=== PATIENT | male | born 1965 | race African-American/Black ===

== ENCOUNTER 2018-05-08 15:58 | Inpatient (IN) ==
[2018-05-08] MEDS ORDERED: ATARAX PO PRN (18:24)
[2018-05-08] MEDS ORDERED: CALAMINE LOTION TOP PRN (18:24)
[2018-05-08] MEDS ORDERED: MOBIC PO PRN (18:24)
[2018-05-08] MEDS ORDERED: NORCO-10 PO PRN (18:40)
--- NOTE | 2018-05-08 18:45 | HISTORY AND PHYSICAL ---
HISTORY OF PRESENT ILLNESS: Mr. Shawn Martinez is a 53-year-old black male who presented to my outpatient office today with ischemic left lower extremity. He states that he has had significant pain involving this left lower extremity for the last 2 weeks. He is developing gangrene of his left great toe. He does have diabetes and is a smoker. He has undergone vascular surgery in [address] Lemon including bilateral iliac angioplasty with a right iliac stent placement. He has also had a left common femoral endarterectomy. He has had a transmetatarsal amputation right foot. He now has an ischemic left lower extremity. MEDICATIONS: Include 1. Aspirin. 2. Farxiga. 3. Pepcid. 4. Atarax. 5. Glucophage. 6. Mobic. ALLERGIES: He has a latex allergy. SOCIAL HISTORY: Family brought him to my offices. He drinks socially on the weekends. He is disabled and lives with his mother. FAMILY HISTORY: Mother has cancer of unknown origin. Dad has prostate cancer. He does have diabetes in his family. REVIEW OF SYSTEMS: A 14-point review of systems was performed and was essentially the same except for pain involving his left lower extremity for the last 2 weeks. PHYSICAL EXAMINATION: GENERAL: Mr. Martinez is a black male, middle aged, in a wheelchair in my office with an ischemic left leg. He is awake cooperative. He has no jaundice. HEENT: No oral lesions. NECK: No cervical or supraclavicular lymphadenopathy. HEART: Regular rate. LUNGS: Clear. ABDOMEN: Soft without tenderness. No costovertebral tenderness. RECTAL: Examination was not performed. EXTREMITIES: I did not feel his femoral pulses but he has an ischemic left leg. Left foot is becoming gangrenous. He cannot move his toes. He cannot move his ankle. He states that he has some redness when he urinates. IMPRESSION: Ischemic left leg with tissue dying with urine that may have myoglobinuria. PLAN: We will admit him, get laboratory data, and he will need an amputation of his left lower extremity. I discussed this frankly with the patient and his family in our outpatient offices. He wants to be admitted. Will evaluate him further with noninvasive vascular study. He will probably need [id number] amputation. We will get the hospitalist to help us with his medical care. cc: MD Bertrand Mora MD
[2018-05-08 19:20] LABS: BASO# 0.02 X1000 (0.0-0.2); BASO% 0.1 % (0.0-0.8); HEMATOCRIT 37.8 % (42.0-52.0); HEMOGLOBIN 12.6 g/dL (14.0-18.0); IMM GRAN# 0.08 X1000 (0.0-0.04); IMM GRAN% 0.4 % (0.0-0.5); LYMPH% 8.7 % (20.5-51.1); MCH 28.1 PG (27-31); MCHC 33.3 g/dL (33-37); MCV 84.2 FL (81-99); MONO# 0.77 X1000 (0.11-0.59); MONO% 4.2 % (1.7-9.3); MPV 10.9 FL (7.4-10.4); NEUT# 16.02 X1000 (1.4-6.5); NEUT% 86.6 % (42.2-75.2); PLT 403 X1000 (130-400); RBC 4.49 XMIL (4.7-6.1); RDW 13.6 % (11.5-14.5); WBC 18.49 X1000 (4.8-10.8)
[2018-05-08] MEDS ORDERED: ZOFRAN IV PRN (19:25)
[2018-05-08] MEDS ORDERED: TYLENOL PO PRN (19:25)
[2018-05-08] MEDS ORDERED: VANCOMYCIN IV PER PHARMACY MISC SCH (19:30)
[2018-05-08] MEDS ORDERED: LOPRESSOR IV PRN (19:43)
[2018-05-08 19:51] LABS: ALB/GLOB RATIO 0.6; ALBUMIN 3.1 g/dL (3.5-5.0); CALCIUM 9.3 mg/dL (8.8-10.2); POTASSIUM 4.5 mmol/L (3.5-5.1); TOTAL BILIRUBIN 0.85 mg/dL (0.20-1.00); TOTAL PROTEIN 8.5 g/dL (6.3-8.3)
[2018-05-08] MEDS ORDERED: VANCOMYCIN 2,200 MG in NS 500 ML IV ONE (20:00)
[2018-05-08] MEDS ORDERED: VANCOMYCIN 1,800 MG in NS 500 ML IV ONE (21:00)
[2018-05-08] MEDS ORDERED: BASAGLAR SUBQ ONE (21:23)
[2018-05-08] MEDS: LOVENOX SUBQ SCH (21:27)
[2018-05-08] MEDS: ZOSYN 3.375 GM in NS 50 ML IV SCH (21:27)
[2018-05-08] MEDS: NS 1,000 ML IV SCH (21:27)
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
[2018-05-08] MEDS: HUMULIN R SUBQ SCH (22:02)
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
--- NOTE | 2018-05-08 22:25 | Diag Imaging Result Doc PS360 ---
EXAM: CT HEAD W/O CONTRAST HISTORY: encephalopathy TECHNIQUE: CT head without contrast COMPARISON: 03/08/2018 FINDINGS: No parenchymal hemorrhage. No epidural or subdural hematoma. No subarachnoid hemorrhage. 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 No mass identified on this noncontrasted exam. No hydrocephalus. No sinus opacification. 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 Electronically signed by Han Smith 05/08/2018 10:22 PM
[2018-05-08] MEDS: MORPHINE IV PRN (23:03)
[2018-05-08 23:07] LABS: URINE SOURCE CATH
[2018-05-08 23:17] LABS: BILIRUBIN URINE NEGATIVE (NEGATIVE); BLOOD URINE MODERATE (NEGATIVE); COLOR YELLOW; GLUCOSE URINE 70 mg/dL (NEGATIVE); KETONE URINE NEGATIVE (NEGATIVE); LEUKOCYTES URINE NEGATIVE (NEGATIVE); NITRITE URINE NEGATIVE (NEGATIVE); PH URINE 5.5; PROTEIN URINE 30 mg/dL (NEGATIVE); SP GRAVITY URINE 1.015; TURBIDITY URINE HAZY (CLEAR); UROBILINOGEN URINE NORMAL (NORMAL)
[2018-05-08 23:20] LABS: UR EPITHELIAL CELLS <10 /HPF (<10); URINE BACTERIA NEGATIVE /HPF; URINE RBC <10 /HPF (<10); URINE WBC <10 /HPF (<10)
[2018-05-08 23:29] LABS: URINE CASTS NONE SEEN; URINE CRYSTALS NONE SEEN; URINE SMALL ROUND CELLS NONE SEEN; URINE YEAST NONE SEEN
[2018-05-09] MEDS: ZOSYN 3.375 GM in NS 50 ML IV SCH ×3 (02:15→13:49)
[2018-05-09] MEDS: MORPHINE IV PRN ×2 (04:05→13:45)
[2018-05-09] MEDS: HUMULIN R SUBQ SCH ×2 (06:32→21:19)
[2018-05-09 06:35] LABS: BASO# 0.03 X1000 (0.0-0.2); BASO% 0.2 % (0.0-0.8); EOS# 0.02 X1000 (0.0-0.7); EOS% 0.1 % (0.0-10.0); HEMATOCRIT 36.7 % (42.0-52.0); HEMOGLOBIN 12.2 g/dL (14.0-18.0); IMM GRAN# 0.07 X1000 (0.0-0.04); IMM GRAN% 0.4 % (0.0-0.5); LYMPH# 2.13 X1000 (1.2-3.4); LYMPH% 12.5 % (20.5-51.1); MCHC 33.2 g/dL (33-37); MCV 84.4 FL (81-99); MONO# 1.01 X1000 (0.11-0.59); MONO% 5.9 % (1.7-9.3); MPV 10.7 FL (7.4-10.4); NEUT# 13.72 X1000 (1.4-6.5); NEUT% 80.9 % (42.2-75.2); PLT 406 X1000 (130-400); RBC 4.35 XMIL (4.7-6.1); RDW 13.5 % (11.5-14.5); WBC 16.98 X1000 (4.8-10.8)
[2018-05-09 06:43] LABS: INR 1.12; PROTIME 15.3 Seconds (11.0-16.0)
[2018-05-09 06:44] LABS: PTT 40.1 Seconds (22.3-41.8)
[2018-05-09 06:55] LABS: BANDS 4 % (0-1); LYMPHS 12 % (21-51); MONO 2 % (1-9); SEGS 82 % (42-75)
[2018-05-09 07:04] LABS: ALB/GLOB RATIO 0.6; ALBUMIN 3.2 g/dL (3.5-5.0); CALCIUM 9.9 mg/dL (8.8-10.2); CREATININE 2.2 mg/dL (0.7-1.2); MAGNESIUM 3.2 mg/dL (1.5-2.7); POTASSIUM 4.6 mmol/L (3.5-5.1); TOTAL BILIRUBIN 0.76 mg/dL (0.20-1.00); TOTAL PROTEIN 8.5 g/dL (6.3-8.3)
[2018-05-09] MEDS ORDERED: GLUCOPHAGE PO SCH (09:00)
[2018-05-09] MEDS ORDERED: NON-FORMULARY MED (Dapagliflozin Propanediol [Farxiga] 5 MG) PO SCH (09:00)
--- NOTE | 2018-05-09 09:27 | Diag Imaging Result Doc PS360 ---
EXAM: CHEST-PORTABLE HISTORY: ischemic left leg TECHNIQUE: Portable chest single view COMPARISON: 10/05/2016 FINDINGS: The lungs are well expanded. The heart is not enlarged. The vessels are not distended. There are no infiltrates. No effusion identified. IMPRESSION: Negative exam. Electronically signed by Han Smith 05/09/2018 9:25 AM
[2018-05-09] MEDS ORDERED: HUMULIN R SUBQ SCH (09:30)
[2018-05-09] MEDS ORDERED: VANCOMYCIN 1,800 MG in NS 500 ML IV SCH (10:00)
[2018-05-09] MEDS: PEPCID PO SCH (10:58)
--- NOTE | 2018-05-09 12:16 | Diag Imaging Result Doc PS360 ---
EXAM: US RENAL 2 (RETROPER) COMPLETE HISTORY: yen TECHNIQUE: Renal ultrasound COMPARISON: None. FINDINGS: The right kidney measures 11.3 x 5.8 x 5.7 cm. Normal renal echotexture and cortical thickness. No renal stone or hydronephrosis. No renal mass. The left kidney measures 12.9 x 5.5 x 5.0 cm. Normal renal echotexture and cortical thickness. No renal stones or hydronephrosis. No renal mass. IMPRESSION: Normal renal ultrasound. Electronically signed by Han Smith 05/09/2018 12:13 PM
--- NOTE | 2018-05-09 13:00 | Diag Imaging Result Doc PS360 ---
EXAM: CT ANGIOGRAM AORTA W/RUNOFF INDICATION: ischemic L leg. TECHNIQUE: This exam was performed using automated exposure control, adjustment of mA or kV according to patient size, and/or use of iterative reconstruction technique. Thin section axial images and 3-D MIPS were obtained. Note that due to significantly impaired renal function, the contrast dose was reduced to 70 mL from the normal 120 mL. This results in poor opacification of the smaller lower extremity arteries. COMPARISON: None. FINDINGS: There is extensive atherosclerotic disease involving the distal aorta and iliac arteries with calcification as well as soft plaques. This is worsened during the interval. The distal aorta is markedly narrowed, up to 80-90% focally. However, it does remain patent. However, the left common iliac artery and left external iliac artery are completely occluded. There has been interval placement of a right common iliac artery stent. There is very little flow within the stent but it probably remains patent. The external iliac artery on the right is patent throughout. There is no evidence of acute intra-abdominal or intrapelvic pathology. Right: There is severe atherosclerotic disease involving the common femoral artery with intermittent occlusion and reconstitution. The superficial femoral artery is completely occluded throughout its course. There is reconstitution via collateralization at the popliteal artery. There is patchy atherosclerotic disease involving the popliteal artery with intermittent narrowing. However, it remains patent. The anterior tibial artery is difficult to visualized due to the poor contrast bolus but it is at least patent until the distal calf. The tibioperoneal trunk also appears to be occluded. The posterior tibial artery and peroneal artery are difficult to visualize given the poor contrast bolus. Left: The common femoral artery is reconstituted after the complete occlusion of the external iliac artery. However, there is extensive atherosclerotic disease involving the common femoral artery, which exhibits irregular moderate stenosis. The superficial femoral artery is completely occluded. There is reconstitution at the popliteal artery but it is very diminutive. The anterior tibial artery, posterior tibial artery, and peroneal artery are difficult to visualize due to the poor contrast bolus. However, they are probably occluded or at least flow is significantly limited. IMPRESSION: Advanced aortoiliac and lower extremity atherosclerotic disease as detailed above. Electronically signed by Jonathan Spann 05/09/2018 12:58 PM
--- NOTE | 2018-05-09 13:15 | PROGRESS NOTE ---
DATE: 05/09/2018 SUBJECTIVE: Mr. Shawn Martinez is a 53-year-old -[place] male. He is in no acute distress, and he is much alert today than yesterday evening. Still continues to have no sensation from just above the left knee all the way down. He has no other new complaints. OBJECTIVE: Vital signs: Temperature is 97.9, heart rate 96, respiratory rate 16, blood pressure 94/57, O2 saturation 94% on room air. General: Mr. Shawn Martinez is a 53-year-old - Somali male. He is in no acute distress. He is able to answer some questions appropriately. Cardiovascular: S1, S2. Regular rate and rhythm. No rubs, gallops, or murmurs. No lower extremity edema. Unable to palpate lower extremity pulses on the left, although, he does have popliteal and femoral palpable pulses and a palpable pulse of the right posterior tibial and dorsalis pedal. Negative for JVD and carotid bruits. Pulmonary: Clear to auscultate bilateral breath sounds. No accessory muscle use or work of breathing noted and is on room air. GI: Soft, nontender, nondistended. Positive bowel sounds x4. Extremities: Decreased range of motion and strength and decreased sensation of the left lower extremity above the knee down. Neurologic: Oriented x3. Follows commands. Skin: Warm, dry, intact except for between the great toe and second toe on the left foot. The great toe is ischemic and gangrenous with a foul smell. LABORATORY DATA: White blood cells 16,000, hemoglobin 12, hematocrit 36, platelet count 406. INR 1.12. PTT is 40.1. Sodium 141, potassium 4.6, BUN 132, creatinine is 2.2, glucose 184. Hemoglobin A1c is 8. Magnesium 3.2. Bilirubin 0.76. AST 84, ALT 124, alkaline phosphatase is 213. CK is 3597. Troponin less than 0.01. Albumin 3.2. Lactate was 1.7. TSH 1.80. Free T4 is 1.21. IMAGING: Chest x-ray negative exam. Telemetry strip sinus tachycardia. ASSESSMENT AND PLAN: 1. Left great toe gangrenous with poor circulation followed by Dr. Persaud with plan for amputation. There is also an order for CT angiogram of the aorta with runoff today. 2. Leukocytosis with signs of sepsis that was present on admission but lactate was normal. Continued on Zosyn and vancomycin. IV fluids continued. Follow up on blood cultures and urine culture. Likely source is the gangrenous left great toe. Chest x-ray was clear. 3. Uncontrolled diabetes mellitus type 2. Hemoglobin A1c is 8. Continue with pattern blood glucoses, low-dose sliding scale insulin. Metformin was stopped. Insulin Glargine, there was only 1 time dose given of that, 15 units. Also Farxiga was discontinued as well. So far, blood glucose levels have been maintained, looks like 206-285, the actual serum glucose level this morning was 184. Will monitor a little more closely and if needed to we can go from a low- dose sliding scale to a moderate. 4. Hypertension with tachycardia has resolved. There was no need for dosing of metoprolol. 5. Encephalopathy likely metabolic but also history of cerebrovascular accident multiple areas resulted through a CAT scan that was performed last night. No acute injuries. Encephalopathy has improved this morning and he is much alert. Hypercoagulable workup ordered. 6. Acute kidney injury with possible history of chronic kidney, although, it looks like his kidney function was normal in February. He presented with a 3.0 creatinine and with IV fluids it has dropped to 2.2. Will do urine studies and a renal ultrasound as well. This could be in the setting of rhabdomyolysis due to the poor perfusion of the muscle on the left lower extremity. 7. Rhabdomyolysis. CK is 3597. He is receiving IV fluid hydration. Kidney function is starting to improve. Will repeat CK daily to monitor for decrease in the CK. Lactate is normal. 8. Elevated anion gap metabolic acidosis. Currently, bicarbonate is 20 and anion gap is 17 slightly improved. Should improve once kidney function improves. 9. Transaminitis with acute kidney injury likely secondary to sepsis, rhabdomyolysis, dehydration, and he has also had a history of alcoholism but has not drank in a few months now. Could do hepatitis panel as well. Ammonia level has not been resulted yet, it has been ordered. 10.Anemia, likely chronic. 11.Deep venous thrombosis prophylaxis, Lovenox. Dictated by DHEERAJ Cadena for Bertrand Murphy MD cc: DHEERAJ Cadena MD I agree with most components of assessment and plan. I evaluated him at bedside. He continues to remain encephalopathic. Vitals detect his tachycardia is a little better with heart rate in 105/min. Air entry bilaterally equal and regular heart rhythm. His left lower and right lower extremity continues to remain cold below knee and left great toe appears gangrenous. Plan; Continue IV fluids his TIA is improving. COntinue broad spectrum antibiotics until final blood culture result comes back. I will stop his transfer to [facility] order since his CT scan detect chronic encephalomalacia rather than acute changes. CLAUDETTE
--- NOTE | 2018-05-09 13:20 | EKG Report ---
Test Performed on : 05/09/2018 1:03:21 PM Test Reason : new admission; rythm check Blood Pressure : / mmHG Vent. Rate : 096 BPM Atrial Rate : 096 BPM P-R Int : 150 ms QRS Dur : 076 ms QT Int : 318 ms P-R-T Axes : 051 060 039 degrees QTc Int : 401 ms Normal sinus rhythm. Septal infarct , age undetermined Abnormal ECG When compared with ECG of 01-AUG-2013 14:32, Septal infarct is now present QT has shortened Unconfirmed Result
[2018-05-09] MEDS: NS 1,000 ML IV SCH ×2 (13:51→19:45)
[2018-05-09] MEDS ORDERED: NIMBEX ONE (14:17)
[2018-05-09] MEDS ORDERED: NS 2,000 ML ONE (14:33)
[2018-05-09] MEDS ORDERED: KEFZOL ONE (14:33)
[2018-05-09] MEDS ORDERED: HEPARIN ONE ×2 (14:33)
[2018-05-09] MEDS ORDERED: NITROGLYCERIN 50 MG/D5W 0 MG/0 ML IV.SOLN ONE (14:46)
[2018-05-09] MEDS ORDERED: XYLOCAINE-MPF 2% ONE (15:28)
[2018-05-09] MEDS ORDERED: SODIUM CHLORIDE 0.9% 20 ML ONE (15:28)
[2018-05-09] MEDS ORDERED: ROBINUL ONE (15:28)
[2018-05-09] MEDS ORDERED: NEO-SYNEPHRINE ONE ×2 (15:28→17:35)
[2018-05-09] MEDS ORDERED: DIPRIVAN 1% ONE (15:31)
[2018-05-09] MEDS ORDERED: QUELICIN (DOSE) ONE (15:31)
[2018-05-09] MEDS ORDERED: FENTANYL ONE (15:31)
--- NOTE | 2018-05-09 15:34 | PROGRESS NOTE ---
DATE: 05/09/2018 SUBJECTIVE: I admitted Mr. Martinez yesterday from our offices with an ischemic left lower extremity. It was already becoming gangrenous. He has known peripheral vascular disease. He is a diabetic and smoker. I could palpate no femoral pulses on exam. Early this morning he underwent a noninvasive vascular study of his lower extremities and there is essentially no pulse waveforms in either lower extremity. This was followed by CT angiogram which suggested occlusion of the left iliacs with some flow in the right iliacs but it was minimal. OBJECTIVE: On exam, his right lower extremity was viable. His left lower extremity was essentially to his knee and below. ASSESSMENT AND PLAN: Amputation is going to be an [id number] amputation, which I think he will require because of his tissue involving his left lower extremity. I spoke with Dr. Kelly. We feel we ought to try to revascularize the right leg and maybe even do a femoral- femoral arterial bypass to the left groin so that our amputation would have a better chance of healing. I spoke with his mother in detail. They understand that he is in a life-threatening situation. They understand this is major surgery, not only the left [id number] amputation but any vascular surgery. If we cannot do this with balloons and stents, we will have to do an aortobifemoral. We will plan for him to be hospitalized in the ICU afterwards. The patient is somewhat confused today and his mother wanted us to proceed. cc: MD Bertrand Mora MD
[2018-05-09] MEDS ORDERED: HEPARIN (DOSE) ONE (16:47)
[2018-05-09] MEDS ORDERED: ZOFRAN ONE (17:05)
[2018-05-09] MEDS ORDERED: NS 0 ML ONE (17:30)
[2018-05-09] MEDS ORDERED: NEOSTIGMINE ONE (18:19)
[2018-05-09] MEDS ORDERED: NS 1,000 ML ONE (18:49)
[2018-05-09] MEDS ORDERED: OFIRMEV 1000 MG/ISOTONIC SOLN 1,000 MG/100 ML BOTTLE ONE (19:13)
[2018-05-09] MEDS ORDERED: NS 500 ML ONE (19:15)
[2018-05-09] MEDS ORDERED: PHENERGAN IV PRN (19:46)
[2018-05-09] MEDS ORDERED: SODIUM CHLORIDE 0.9% INJ PRN (19:46)
--- NOTE | 2018-05-09 19:59 | OPERATIVE NOTE ---
PROCEDURE DATE: 05/09/2018 PREOPERATIVE DIAGNOSES: 1. Ischemic left leg. 2. Insulin-dependent diabetes mellitus. 3. Smoker. 4. Known peripheral vascular disease. POSTOPERATIVE DIAGNOSES: 1. Ischemic left leg. 2. Insulin-dependent diabetes mellitus. 3. Smoker. 4. Known peripheral vascular disease. OPERATION: Left bklxs-lhv-vael amputation. SURGEON: Esperanza Persaud MD RAIL CAR UNLOADER: Ramakrishna Kelly MD ANESTHESIA: General. ESTIMATED BLOOD LOSS: 150 mL DRAINS: None. INDICATIONS: Mr. Shawn Martinez is a 53-year-old black male who in 2013 underwent vascular surgery per Dr. Lemon. He presented to my office on 05/08/2018 with an ischemic and dying left lower extremity. He could not walk on this leg or move his toes or ankle, and it was clearly mottled and dying. He had gangrene involving his left toe and the back of his ankle. He was admitted immediately to the hospital, received IV hydration and this morning underwent a noninvasive vascular study, and also a CT angiogram. The angiogram suggested that the iliac vessels on the left were occluded. He also had poor flow in the right lower extremity without pulse waveforms. We felt we should take him to the operating room this evening and remove his essentially left lower extremity, and try to improve flow to the right lower extremity and improve flow to the amputation site so that it would heal. Dr. Kelly and I worked together on this operation. PROCEDURE: The patient was brought to the operating room, received general anesthesia and was intubated. Ram catheter tube was in. We prepped his abdomen, groin and down to his knees bilaterally. The patient was prepped and draped carefully. We did use an Ioban on the skin, and we began our procedure by cutting down on the groins bilaterally and identifying the common femoral arteries and their branches. Both of these groins have been operated on before. Dr. Kelly worked on the right groin. I worked on the left groin, and we isolated these vessels with Vesseloops. Before heparinizing the patient and moving on with revascularization, we did the left above-the- knee amputation. I marked a fishmouth incision above the knee on the left and I made my incision with a 10 blade scalpel circumferentially around the left thigh. I carried this incision down through the skin and subcutaneous tissue to the muscle layer, where I changed to the Bovie and started transecting the muscles of the thigh. I used an orthopedic power saw to come across the femur, and then I used an amputation knife to finish the amputation posteriorly. We controlled bleeding as we came across it using Nenita clamps, hemostats and 2-0 ties or suture ligatures. There was not much bleeding involving this area, but the muscle was still alive as we came across it with the cautery. There was some bleeding in small vessels involving this area. The tissue was not where we came across the left dhjzv-rvy-ynkn amputation. Once we were comfortable with the bleeding, we thoroughly irrigated the amputation site and I closed this amputation wound in layers. Initially, I closed the deep muscle and fascia over the cut end of the femur, and I used 0 Vicryl stitches to close the superficial fascia anteriorly to posteriorly. Then I used a skin clip video tape duplicator to close the skin of our wound. We then directed our attention to revascularization and Dr. Kelly took over, performing balloon angioplasty of the right iliac vessels. Then he and I performed a femoral-femoral arterial bypass graft. This was an 8 mm knitted graft. He is dictating those procedures separately. The patient had a lot of surgery. He is critically ill. He will go the recovery room and the ICU. I spoke with his family after the procedure. cc: MD Bertrand Mora MD
--- NOTE | 2018-05-09 20:15 | OPERATIVE NOTE ---
PROCEDURE DATE: 05/09/2018 PREOPERATIVE DIAGNOSES: 1. Arterial ischemia of left leg with gangrene. 2. Left common iliac occlusion. 3. Right iliac stenosis. 4. Probable right superficial femoral disease as well. POSTOPERATIVE DIAGNOSES: 1. Arterial ischemia of left leg with gangrene. 2. Left common iliac occlusion. 3. Right iliac stenosis. 4. Probable right superficial femoral disease as well with in-stent stenosis. MY PORTION OF THE OPERATION: Open right common iliac balloon angioplasty SECOND PORTION OF OPERATION: Femoral-femoral bypass. CARE CENTER MANAGER: Dr. Esperanza Persaud, who assisted me in the anastomoses and exposure for the femoral- femoral bypass and assisted with the left common femoral anastomosis. DESCRIPTION OF PROCEDURE: Satisfactory general endotracheal anesthesia was achieved. Dr. Persaud placed a central venous line. The abdomen and legs were prepped and draped. We made vertical incisions, and I dissected the right common femoral and he dissected the left common femoral out. He then performed a left above-knee amputation, which he will dictate. We then gave the patient 8000 units of heparin. We accessed the right common femoral with Seldinger technique and put in a 6-Romanian sheath. We shot a retrograde arteriogram, and this showed flow all the way into the aorta. There did appear to be some mild in-stent stenosis, so I used a 7 x 4 balloon x2 to dilate the area of the stent to be certain there was no in-stent stenosis that would compromise flow. We did have quite good antegrade bleeding at that point, so we obtained an 8 mm Hemashield graft and tunneled it between the groins. We opened the right after dissecting out the profunda and the branch vessels of the common femoral on the right. We then did an arteriotomy. There was some intima that we had to remove, but we did have backbleeding from the profunda. We were able to pass 3, 4 and 5 dilators into the profunda, and there was good back bleeding. We had adequate antegrade flow as well, and a pulse was palpated in the common femoral and the external iliac just above the inguinal ligament. We then constructed the anastomosis using a 5-0 Prolene stitch between the graft and the common femoral artery. Upon completion, we then allowed flow into the wyandotte artery, and we clamped off the femoral-femoral bypass. We then turned our attention to the left side, and with Dr. Persaud's assistance we did a left common femoral anastomosis there. There was back bleeding from the profunda, and a small amount of antegrade flow as well. Before finishing the anastomosis, we flushed the graft, and there was adequate antegrade flow, and the anastomosis was finished. Both the anastomoses were hemostatic. A pulse was felt within the graft. We irrigated out both groins with antibiotic-impregnated saline and closed in 2 layers of 2-0 Polysorb. The skin was closed with luisito. Sterile dressings were applied. He tolerated procedure satisfactorily. We gave the patient 60 mL of contrast. Estimated blood loss was 700 mL. He was sent to the recovery room in stable condition. cc: MD Bertrand Mcintosh MD
[2018-05-09 20:22] LABS: I-STAT BE -8 mmoll (-2-3); I-STAT GLUCOSE 178 mg/dL (70-105); I-STAT HEMOGLOBIN 8.8 g/dL (11.5-17.5); I-STAT K 4.4 mmoll (3.5-4.9); I-STAT TCO2 19 mmoll (23-27)
[2018-05-09] MEDS: KEFZOL 1 GM/D5W 1 GM/50 ML IVPB IV SCH (21:12)
[2018-05-09] MEDS: LOVENOX SUBQ SCH (21:13)
[2018-05-09 23:22] LABS: UR CREAT RANDOM 30.1 mg/dL (14-26)
[2018-05-10] MEDS: HUMULIN R SUBQ SCH ×4 (02:19→19:34)
[2018-05-10] MEDS: KEFZOL 1 GM/D5W 1 GM/50 ML IVPB IV SCH ×4 (03:45→20:23)
[2018-05-10 04:18] LABS: BASO# 0.04 X1000 (0.0-0.2); BASO% 0.2 % (0.0-0.8); EOS# 0.03 X1000 (0.0-0.7); EOS% 0.2 % (0.0-10.0); HEMATOCRIT 37.4 % (42.0-52.0); HEMOGLOBIN 12.5 g/dL (14.0-18.0); IMM GRAN% 0.6 % (0.0-0.5); LYMPH# 1.54 X1000 (1.2-3.4); LYMPH% 9.3 % (20.5-51.1); MCH 29.3 PG (27-31); MCHC 33.4 g/dL (33-37); MCV 87.6 FL (81-99); MPV 10.5 FL (7.4-10.4); NEUT# 13.87 X1000 (1.4-6.5); NEUT% 83.7 % (42.2-75.2); PLT 305 X1000 (130-400); RBC 4.27 XMIL (4.7-6.1); RDW 14.6 % (11.5-14.5); WBC 16.58 X1000 (4.8-10.8)
[2018-05-10 04:52] LABS: AGAP 15; ALB/GLOB RATIO 0.6; ALBUMIN 2.7 g/dL (3.5-5.0); ALKALINE PHOSPHATASE 155 U/L (32-122); BUN 57 mg/dL (8-22); CALCIUM 8.6 mg/dL (8.8-10.2); CHLORIDE 113 mmol/L (98-107); CK TOTAL 2263 U/L (24-204); COSMO 313; CREATININE 1.1 mg/dL (0.7-1.2); ESTIMATED GFR > 60; GLUCOSE 177 mg/dL (70-104); GOT 59 U/L (10-34); GPT 79 U/L (10-44); MAGNESIUM 2.1 mg/dL (1.5-2.7); PHOSPHORUS 2.6 mg/dL (2.7-4.5); SODIUM 147 mmol/L (136-145); TCO2 19 mmol/L (25-35); TOTAL BILIRUBIN 1.63 mg/dL (0.20-1.00); TOTAL PROTEIN 7.5 g/dL (6.3-8.3)
[2018-05-10] MEDS: MORPHINE IV PRN ×5 (04:57→22:25)
[2018-05-10] MEDS: NS 1,000 ML IV SCH (05:53)
--- NOTE | 2018-05-10 07:38 | Diag Imaging Result Doc PS360 ---
EXAM: CHEST-PORTABLE INDICATION: Post surgery TECHNIQUE: One view COMPARISON: 05/09/2018 FINDINGS: There is now minimal subsegmental atelectasis at the right lower lung zone. No other new consolidations are identified. There has been interval placement of a right central line. The tip projects over the lower SVC just superior to the atriocaval junction. There is no evidence of pneumothorax postplacement. Cardiac silhouette is stable. IMPRESSION: Development of mild right basilar atelectasis and placement of a right central line with no evidence of pneumothorax postplacement. Electronically signed by Jonathan Spann 05/10/2018 7:36 AM
[2018-05-10] MEDS: ASPIRIN EC PO SCH (08:23)
[2018-05-10] MEDS: PEPCID PO SCH (08:23)
[2018-05-10] MEDS: 1/2 NS 1,000 ML IV SCH ×2 (12:28→22:26)
--- NOTE | 2018-05-10 13:21 | GENERAL SURGERY PROGRESS NOTE ---
DATE: 05/10/2018 It 12 o'clock noon. Mr. Martinez reports that he is doing generally well. He says his right leg feels fine. His heart rate 101, blood pressure is 108/76. He has been passing plenty of urine. He is awake and alert. He has taken some liquids by mouth. Hemoglobin is 12.5, hematocrit 37.4, white count is 16,600. His sodium today is 147, potassium 5.0, chloride 113, carbon dioxide is 19, BUN is down to 57, creatinine down 1.1. His LFTs show a fall in his AST, a fall in his ALT, and a fall in his alkaline phosphatase. His creatine kinase is down to 2263. His right leg feels warm all the way to the foot. His bandages are dry. ASSESSMENT: He is doing generally satisfactory after his right iliac angioplasty, femorofemoral bypass, left above knee amputation. His perfusion is significantly improved. His CPK is falling. PLAN: Since his sodium and chloride are both going up, it may be beneficial to cut him to half- normal. His kidneys are functioning better with a fall in his BUN and creatinine compared to his preop status. cc: MD Bertrand Mcintosh MD
[2018-05-10 14:13] LABS: HEPATITIS PROFILE ACUTE SEE COMMENTS
--- NOTE | 2018-05-10 17:28 | PROGRESS NOTE ---
DATE: 05/10/2018 Mr. Martinez is now postop day 1 from a right iliac artery angioplasty femoral-femoral arterial bypass graft and a left ydhkw-lcg-xhoo amputation for an ischemic left leg. He is in our ICU awake, hemodynamically satisfactory. His right lower extremity is warm. His heart rate is 105- 112. His blood pressure is 98/66, O2 saturation 96%. He is on O2. He is awake and cooperative. His T-max is 99. He is on IV Kefzol. His white blood cell count is 16.6. Hematocrit is 37%. BUN and creatinine are 57 and 1.1. His renal function continues to improve. IMPRESSION: I think clinically he has improved status post surgery. I think we can allow him to eat. We need to be sure that he is turned q.2 hours to prevent any skin breakdown. He does have some involving his sacrum. He has a Ram catheter tube in place. We will leave that. We need to start. cc: MD Bertrand Mora MD
[2018-05-10] MEDS: LOVENOX SUBQ SCH (18:20)
--- NOTE | 2018-05-10 18:57 | PROGRESS NOTE ---
DATE: 05/10/2018 INTERVAL HISTORY: Mr. Martinez underwent open right common iliac balloon angioplasty as well as left above-knee amputation by surgical team yesterday and was transferred to ICU. His postoperative course has been uncomplicated. SUBJECTIVE: He continues to remain inside ICU. He does not answer questions appropriately. He is awake, alert, but intermittently confused which appears to be his baseline, in my opinion currently. VITAL SIGNS: Temperature of 99 degrees, pulse 105, respiratory 22, blood pressure 98/66. He is saturating 96% on 4 L nasal cannula. PHYSICAL EXAMINATION: General: He does not appear in any acute distress. HEENT: Oral cavity is moist. Lungs: Air entry bilaterally equal. No wheeze, rhonchi, crackles. Heart: S1, S2 normal. Tachycardic. No murmur, rub, or gallop. Abdomen: Soft, nontender. Lower extremities: He has left above-knee amputation. The stump is dressed. He has a dressing on the right groin. He does have edema affecting right ankle. I could palpate right posterior tibial pulses. Right right dorsalis pedis pulses are barely palpable. However, he does have ultrasound pulsation that I could hear. He also has a right-sided chest central line and a Narayanan catheter. LABORATORY DATA: Labs suggestive of persistent leukocytosis, normocytic anemia, normal platelet count. His BMP is suggestive of hypernatremia, hyperchloremia, low bicarbonate, improving BUN and creatinine. Assessment and PLAN: ASSESSMENT: 1. Sepsis due to infected left great toe gangrene. Now s/p left above knee amputation and right leg femoral artery open thrombectomy. He is on IV cefazolin now. Surgery is the primary team. 2. Acute encephalopathy in the setting of hyperglycemia, uremia, sepsis. Persistent. 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 Hypercoagulable work up including antiphospholipid antibody are in lab. 3. Acute kidney injury. Improving. Continue IV fluids and narayanan catheter for close in put and output. 4. Elevated anion gap metabolic acidosis. Improving. 5. Transaminitis and acute liver injury because of sepsis and rhabdomyolysis. Improving. Follow up CMP. His CPK is downtrending. 6. Insulin dependent type 2 diabetes with uncontrolled hyperglycemia. Currently better on sliding scale insulin. cc: Bertrand Murphy MD [facility]
[2018-05-10] MEDS ORDERED: VANCOMYCIN 1,500 MG in NS 250 ML IV SCH (23:00)
[2018-05-11] MEDS: HUMULIN R SUBQ SCH ×4 (01:51→19:36)
[2018-05-11] MEDS: MORPHINE IV PRN ×4 (02:14→22:03)
[2018-05-11] MEDS: KEFZOL 1 GM/D5W 1 GM/50 ML IVPB IV SCH ×5 (04:00→21:23)
[2018-05-11 05:06] LABS: BASO# 0.03 X1000 (0.0-0.2); BASO% 0.2 % (0.0-0.8); EOS# 0.08 X1000 (0.0-0.7); EOS% 0.5 % (0.0-10.0); HEMATOCRIT 35.2 % (42.0-52.0); HEMOGLOBIN 11.6 g/dL (14.0-18.0); IMM GRAN# 0.12 X1000 (0.0-0.04); IMM GRAN% 0.8 % (0.0-0.5); LYMPH# 1.91 X1000 (1.2-3.4); LYMPH% 11.9 % (20.5-51.1); MCH 29.6 PG (27-31); MCV 89.8 FL (81-99); MONO# 1.04 X1000 (0.11-0.59); MONO% 6.5 % (1.7-9.3); MPV 10.1 FL (7.4-10.4); NEUT# 12.82 X1000 (1.4-6.5); NEUT% 80.1 % (42.2-75.2); PLT 259 X1000 (130-400); RBC 3.92 XMIL (4.7-6.1); RDW 14.5 % (11.5-14.5)
[2018-05-11 05:27] LABS: AGAP 13; ALB/GLOB RATIO 0.6; ALBUMIN 2.6 g/dL (3.5-5.0); ALKALINE PHOSPHATASE 143 U/L (32-122); BUN 21 mg/dL (8-22); CALCIUM 8.9 mg/dL (8.8-10.2); CHLORIDE 109 mmol/L (98-107); COSMO 290; CREATININE 0.8 mg/dL (0.7-1.2); ESTIMATED GFR > 60; GLUCOSE 162 mg/dL (70-104); GOT 125 U/L (10-34); GPT 67 U/L (10-44); MAGNESIUM 1.8 mg/dL (1.5-2.7); PHOSPHORUS 2.5 mg/dL (2.7-4.5); POTASSIUM 4.6 mmol/L (3.5-5.1); SODIUM 142 mmol/L (136-145); TCO2 20 mmol/L (25-35); TOTAL BILIRUBIN 0.91 mg/dL (0.20-1.00); TOTAL PROTEIN 7.3 g/dL (6.3-8.3)
[2018-05-11 05:44] LABS: CK TOTAL 6230 U/L (24-204)
[2018-05-11] MEDS: 1/2 NS 1,000 ML IV SCH ×2 (07:52→17:49)
[2018-05-11] MEDS: PEPCID PO SCH ×2 (07:54→11:18)
[2018-05-11] MEDS: ASPIRIN EC PO SCH ×2 (07:54→11:17)
--- NOTE | 2018-05-11 14:33 | PROGRESS NOTE ---
DATE: 05/11/2018 SUBJECTIVE: Patient has no focal complaints. I cannot tell he is confused to me at this point. OBJECTIVE: Vital signs: Blood pressure 127/88, heart rate of 39, respiratory 15, temperature 98.3 degrees, 92% on 4 L. Cardiovascular: Regular rate and rhythm. Pulmonary: Bilateral breath sounds clear to auscultation. GI: Soft, nontender, nondistended. Bowel sounds are positive. LABORATORY DATA: White count 16, hemoglobin and hematocrit 11 and 35, platelets 259,000. Basic was normal. Mag of 2.5. AST and ALT 125 and 67. Creatinine K 6230. PROBLEM LIST: 1. Sepsis, infected left toe, status post knee amputation. Right leg femoral artery thrombectomy, on IV Kefzol. Surgery following. 2. Encephalopathy. He has a lot of encephalomalacia but no acute process, but overall I think he is improved. 3. Acute kidney injury that is also improving. His creatinine is normal today. I think we could probably tone down the fluids a bit. 4. Elevated liver enzymes. That is also improving. 5. Type 2 diabetes. Sugars are below 200 and his current regimen is regular insulin, he is just on sliding scale. He is usually on metformin which I guess they have held because of his renal insufficiency, but I think we could probably resume that and follow. Appreciate consultations. From my standpoint, I think he is okay to go to the floor. He is a surgical patient so we will await their input. cc: Saqib Mejia MD
--- NOTE | 2018-05-11 15:05 | PROGRESS NOTE ---
DATE: 05/11/2018 SUBJECTIVE: Mr. Martinez is now postoperative day 2 from angioplasty of right iliac arteries with femoral-femoral arterial bypass, left hrniv-gzf-tgge amputation. He remains in our ICU. He is confused this morning, but all of his labs are improving, and I think he is clinically improving. OBJECTIVE: Heart rate is 105, blood pressure 127/80, and O2 saturation 92%. He is afebrile. He has a Ram catheter tube in place. We have him on a diabetic diet. His white blood cell count is 16, hematocrit 35%. BUN and creatinine are 21 and 0.8, and that continues to improve. PLAN: We need to get a trapeze bar over his bed. We need to make sure he is being turned because of some breakdown at the sacrum. We will continue supportive care. cc: MD Saqib Mora MD
--- NOTE | 2018-05-11 17:18 | VASCULAR LAB ---
PROCEDURE NAME: Arterial Bilateral Legs - 05/08/2018 REQUESTING PHYSICIAN: Esperanza Persaud MD READING PHYSICIAN: Surendra Denny MD APPRENTICE COSMETOLOGIST: Lida Shields RVT INDICATION: Left leg ischemia and left toe gangrene. FINDINGS: There are no discernible waveforms of flow at any level bilaterally. Segmental pressures were measured as right brachial 94, left brachial 94, right high thigh 44, low thigh 40, and there were no other pressures measured. INTERPRETATION: There is extensive bilateral lower extremity occlusive disease likely at the aortoiliac level, and further evaluation with CT angiogram of the aorta and runoff of the extremities is suggested. cc: MD Esperanza Gallegos MD
[2018-05-11] MEDS: GLUCOPHAGE PO SCH (17:46)
[2018-05-11] MEDS: LOVENOX SUBQ SCH (17:46)
--- NOTE | 2018-05-11 19:13 | GENERAL SURGERY PROGRESS NOTE ---
DATE: 05/11/2018 TIME: 3:40 p.m. Mr. Martinez is doing generally well. His right leg is warm. His foot is warm. He has posterior tibial Doppler flow. He says his stump feels okay as well. His white count is down to 16,000. His BUN and creatinine are down as well. It appears he is improving. cc: MD Saqib Mcintosh MD
[2018-05-12] MEDS: MORPHINE IV PRN ×2 (00:46→15:09)
[2018-05-12] MEDS: HUMULIN R SUBQ SCH ×4 (01:25→20:22)
[2018-05-12] MEDS: 1/2 NS 1,000 ML IV SCH ×2 (03:36→15:05)
[2018-05-12] MEDS: KEFZOL 1 GM/D5W 1 GM/50 ML IVPB IV SCH ×3 (03:37→15:02)
[2018-05-12 04:32] LABS: BASO# 0.04 X1000 (0.0-0.2); BASO% 0.2 % (0.0-0.8); EOS# 0.09 X1000 (0.0-0.7); EOS% 0.5 % (0.0-10.0); HEMATOCRIT 33.7 % (42.0-52.0); IMM GRAN# 0.23 X1000 (0.0-0.04); IMM GRAN% 1.4 % (0.0-0.5); LYMPH# 2.22 X1000 (1.2-3.4); LYMPH% 13.3 % (20.5-51.1); MCH 29.2 PG (27-31); MCHC 32.6 g/dL (33-37); MCV 89.4 FL (81-99); MONO# 0.99 X1000 (0.11-0.59); MONO% 5.9 % (1.7-9.3); MPV 10.4 FL (7.4-10.4); NEUT% 78.7 % (42.2-75.2); PLT 244 X1000 (130-400); RBC 3.77 XMIL (4.7-6.1); RDW 14.5 % (11.5-14.5); WBC 16.67 X1000 (4.8-10.8)
[2018-05-12 05:00] LABS: AGAP 15; ALB/GLOB RATIO 0.6; ALBUMIN 2.8 g/dL (3.5-5.0); ALKALINE PHOSPHATASE 171 U/L (32-122); BUN 17 mg/dL (8-22); CALCIUM 8.6 mg/dL (8.8-10.2); CHLORIDE 105 mmol/L (98-107); COSMO 281; CREATININE 0.8 mg/dL (0.7-1.2); ESTIMATED GFR > 60; GLUCOSE 139 mg/dL (70-104); GOT 122 U/L (10-34); GPT 65 U/L (10-44); MAGNESIUM 1.7 mg/dL (1.5-2.7); PHOSPHORUS 2.9 mg/dL (2.7-4.5); POTASSIUM 3.9 mmol/L (3.5-5.1); SODIUM 139 mmol/L (136-145); TCO2 19 mmol/L (25-35); TOTAL BILIRUBIN 0.65 mg/dL (0.20-1.00); TOTAL PROTEIN 7.4 g/dL (6.3-8.3)
[2018-05-12 05:13] LABS: CK TOTAL 5167 U/L (24-204)
[2018-05-12] MEDS: PEPCID PO SCH ×2 (08:32→10:17)
[2018-05-12] MEDS: ASPIRIN EC PO SCH (08:32)
[2018-05-12] MEDS: GLUCOPHAGE PO SCH (08:32)
[2018-05-12] MEDS: MIRALAX PO SCH (10:15)
--- NOTE | 2018-05-12 10:44 | PROGRESS NOTE ---
DATE: 05/12/2018 SUBJECTIVE: The patient is complaining of a lot of abdominal pain. I do not know if he has had a bowel movement in several days. I do not see a bowel movement recorded since he has been here. OBJECTIVE: Vital Signs: Blood pressure is 119/75, heart rate of 104, respiratory rate 21, temperature 97.6 degrees and 95% on room air on 4 L. Cardiovascular: Regular rate and rhythm. Pulmonary: Bilateral breath sounds. Clear to auscultation. GI: Soft, nontender, and nondistended. Bowel sounds were positive. Extremities: No clubbing or cyanosis. Lymphatic: No peripheral edema. Neurological: Nonfocal. LABORATORY DATA: White count 16 which has hovered there for the last several days. Hemoglobin and hematocrit 11 and 33, platelets of 244,000. Chemistries show a normal basic. AST and ALT are 122 and 65. Creatine kinase is 5167. ASSESSMENT AND PLAN: 1. Sepsis, status post amputation of his left knee above the knee amputation higher than that. He is on IV Kefzol. Surgery is following. 2. Encephalopathy. He seems to be doing okay. 3. Acute kidney injury. That has also improved. 4. Abdominal pain and constipation. I am sure he is probably constipated that may be causing his pain. We are going to check plain films. He has been started on a bowel regimen which I may supplement with some lactulose. He does not want a suppository, but we will check plain films. 5. Leukocytosis. I am not quite sure what the source of that is. We will continue to follow, and see if there is anything going on from that standpoint. DISPOSITION: Pending his clinical status. cc: Saqib Mejia MD [facility]
--- NOTE | 2018-05-12 11:05 | Diag Imaging Result Doc PS360 ---
EXAM: CHEST-PORTABLE 05/12/2018 HISTORY: dyspnea TECHNIQUE: AP portable at 1038 COMMENT: There is a right subclavian central venous catheter with its tip in the superior vena cava. Compared to 05/10/2018 there has been improvement in the platelike atelectasis present previously in the right middle lobe. Otherwise there has been no significant change. IMPRESSION: Improved atelectasis. Electronically signed by Chepe Sorenson 05/12/2018 11:02 AM
--- NOTE | 2018-05-12 11:08 | Diag Imaging Result Doc PS360 ---
EXAM: ABDOMEN FLAT/UPRIGHT HISTORY: pain TECHNIQUE: Flat and upright abdomen, two views COMPARISON: None. FINDINGS: There are air-filled loops of colon with a small amount of stool throughout the colon. Multiple skin luisito overlie the hips. No organomegaly. No abnormal abdominal calcifications. IMPRESSION: Air distended colon likely representing ileus Electronically signed by Han Smith 05/12/2018 11:05 AM
[2018-05-12] MEDS: PROTONIX IV SCH ×3 (11:46→22:39)
[2018-05-12] MEDS: LOPRESSOR PO SCH ×2 (11:47→20:27)
[2018-05-12 13:55] LABS: ALLEN TEST NO; BE -2.9 mmoll (-3.0-3.0); BLOOD TYPE ARTERIAL; HCO3-(ACT) 22.6 mmoll (20.0-26.0); METHB 0.8 % (0.0-1.5); MODALITY BI PAP; O2(CT) 15.5 mL/dL (15.0-23.0); O2HB 95.7 % (95.0-99.0); PCO2(98.6) 27 mmHg (35-45); PO2(98.6) 78 mmHg (60-100); SAMPLE BLOOD; SAO2 98.5 % (95.0-100.0); THB 11.5 g/dL (11.5-17.4); pH(98.6) 7.47 (7.35-7.45)
--- NOTE | 2018-05-12 14:47 | Diag Imaging Result Doc PS360 ---
EXAM: CT ANGIOGRM PULMONARY ARTERIES 05/12/2018 HISTORY: chest pain TECHNIQUE: This exam was performed using automated exposure control, adjustment of mA or kV according to patient size, and/or use of iterative reconstruction technique. COMMENT: There are no previous studies. 3-D MIPS were performed. There are calcified nodes in the right hilum. There are no filling defects in the pulmonary arteries. There are calcifications in the thoracic aorta but there is no evidence of aneurysm or dissection. There are coarse opacities in both lower lobes posteriorly consistent with atelectasis or pneumonia. No abnormal fluid collections are present. The regional skeleton is intact. There is dilatation of bowel loops in the upper abdomen with air-fluid levels. IMPRESSION: No evidence of pulmonary emboli. Bibasilar atelectasis versus pneumonia. Electronically signed by Chepe Sorenson 05/12/2018 2:44 PM
--- NOTE | 2018-05-12 14:50 | PROGRESS NOTE ---
DATE: 05/12/2018 SUBJECTIVE: Mr. Shawn Martinez is now postop day 3 from right iliac balloon angioplasty, and fem- fem arterial bypass graft in addition to a left ijqjk-nxw-muuw amputation left lower extremity. He is awake, cooperative, he is complaining of some abdominal distention and discomfort. OBJECTIVE: Vital Signs: His heart rate is 94, blood pressure is 141/84, O2 saturation 99%. He is afebrile. He has been on IV Kefzol because of his graft. His right lower extremity is warm. His left AKA is dressed. His groin incisions seem to be intact and dressed. His abdomen is slightly distended, it seems mildly tender diffusely. LABORATORY DATA: His white blood cell count has gone up actually from 16 to 16.7. Hematocrit is 34%. Electrolytes are within normal limits. BUN is 17, creatinine 0.8. His bicarb is 19. His liver function test showed normal total bilirubin. AST is 122, ALT 65, which are about the same. His creatine kinase has come down 1000. His blood gas shows a base deficit of 2.9. He is having to be placed on BiPAP which is new. PLAN: We placed him on a diabetic diet. I have told him not to take it if he feels nauseated or sick. We need to continue support. We will continue Ancef prophylactically. He has been placed back on his home medications. He is getting some lactulose to help move his bowels. Dr. Surendra Denny is covering for our group this weekend. cc: MD Saqib Mora MD
[2018-05-12] MEDS: DULCOLAX PR SCH ×2 (15:02→20:23)
[2018-05-12] MEDS: LOVENOX SUBQ SCH (17:46)
[2018-05-12] MEDS: LACTULOSE PO SCH (20:28)
[2018-05-12] MEDS: MAXIPIME 2 GM in NS 100 ML IV SCH (20:29)
[2018-05-13] MEDS: NORCO-10 PO PRN ×2 (01:09→17:08)
[2018-05-13] MEDS: 1/2 NS 1,000 ML IV SCH ×3 (01:13→20:49)
[2018-05-13] MEDS: HUMULIN R SUBQ SCH ×4 (01:22→21:11)
[2018-05-13 07:53] LABS: BASO# 0.03 X1000 (0.0-0.2); BASO% 0.2 % (0.0-0.8); EOS# 0.13 X1000 (0.0-0.7); EOS% 0.9 % (0.0-10.0); HEMATOCRIT 32.2 % (42.0-52.0); HEMOGLOBIN 10.4 g/dL (14.0-18.0); IMM GRAN# 0.34 X1000 (0.0-0.04); IMM GRAN% 2.2 % (0.0-0.5); LYMPH# 2.12 X1000 (1.2-3.4); LYMPH% 13.9 % (20.5-51.1); MCH 29.1 PG (27-31); MCHC 32.3 g/dL (33-37); MCV 89.9 FL (81-99); MONO# 0.76 X1000 (0.11-0.59); MPV 10.7 FL (7.4-10.4); NEUT# 11.82 X1000 (1.4-6.5); NEUT% 77.8 % (42.2-75.2); PLT 243 X1000 (130-400); RBC 3.58 XMIL (4.7-6.1); RDW 14.3 % (11.5-14.5)
[2018-05-13 08:05] LABS: LYMPHS 22 % (21-51); MONO 2 % (1-9); SEGS 76 % (42-75)
[2018-05-13] MEDS: MAXIPIME 2 GM in NS 100 ML IV SCH ×2 (08:38→20:49)
[2018-05-13] MEDS: LACTULOSE PO SCH ×2 (08:38→20:57)
[2018-05-13] MEDS: PEPCID PO SCH (08:39)
[2018-05-13] MEDS: ASPIRIN EC PO SCH (08:39)
[2018-05-13] MEDS: LOPRESSOR PO SCH ×2 (08:39→20:57)
[2018-05-13] MEDS: DULCOLAX PR SCH ×2 (08:39→20:58)
[2018-05-13] MEDS: PROTONIX IV SCH ×3 (08:39→20:57)
[2018-05-13] MEDS: MIRALAX PO SCH (08:46)
[2018-05-13 09:05] LABS: BUN 15 mg/dL (8-22); CALCIUM 8.5 mg/dL (8.8-10.2); MAGNESIUM 1.8 mg/dL (1.5-2.7); TOTAL BILIRUBIN 0.73 mg/dL (0.20-1.00)
[2018-05-13 09:16] LABS: AGAP 14; ALB/GLOB RATIO 0.6; ALBUMIN 2.4 g/dL (3.5-5.0); ALKALINE PHOSPHATASE 183 U/L (32-122); CHLORIDE 107 mmol/L (98-107); GLUCOSE 104 mg/dL (70-104); GOT 109 U/L (10-34); GPT 68 U/L (10-44); POTASSIUM 4.2 mmol/L (3.5-5.1); SODIUM 140 mmol/L (136-145); TCO2 19 mmol/L (25-35); TOTAL PROTEIN 6.7 g/dL (6.3-8.3)
[2018-05-13 09:18] LABS: COSMO 281
[2018-05-13 09:28] LABS: PHOSPHORUS 3.1 mg/dL (2.7-4.5)
[2018-05-13 09:35] LABS: CREATININE 0.7 mg/dL (0.7-1.2)
[2018-05-13 09:46] LABS: CK TOTAL 3632 U/L (24-204)
[2018-05-13] MEDS ORDERED: MOVANTIK PO ONE (12:41)
--- NOTE | 2018-05-13 13:15 | PROGRESS NOTE ---
DATE: 05/13/2018 SUBJECTIVE: The patient had some issues overnight with desaturation yesterday and abdominal pain, which he is still having some. OBJECTIVE: Vital Signs: Blood pressure is 97/61, heart rate 97, respiratory rate 22, temperature 97 degrees and afebrile. Cardiovascular: Regular rate and rhythm. Pulmonary: Bilateral breath sounds diminished at bases. GI: Soft, nontender, nondistended. Bowel sounds are positive. Extremities: His left leg is under bandage and his right leg has a dressing overlying the right inguinal area it looks like from access. LABS: White count is 15, hemoglobin and hematocrit 10 and 32, platelets 243. Basic was normal. His AST and ALT are still up, 109 and 68. His CPK is 3600 in any case. ASSESSMENT AND PLAN: This is a 53-year-old male with history of severe peripheral vascular disease, diabetes, who is status post left amputation. 1. Left amputation above the knee. He is being followed by Surgery. 2. Encephalopathy, doing okay. No major issues. 3. Acute kidney injury that is improved. 4. Ileus, constipation. He is passing gas and has had a couple bowel movements. We will continue plain bowel regimen and advance his diet. 5. Leukocytosis, likely due to pneumonia, which feels likely a gram-negative type pneumonia. He has been placed on cefepime. We will follow. His white count is a little better today. Repeat his chest x-ray and plain films tomorrow. Overall, though, he has improved. I think we will probably anticipate transfer to step-down tomorrow if he is improved. cc: Saqib Mejia MD
--- NOTE | 2018-05-13 14:25 | GENERAL SURGERY PROGRESS NOTE ---
DATE: 05/13/2018 SUBJECTIVE: The patient has some gas in his abdomen. He did have a bowel movement. He is tolerating liquids. OBJECTIVE: He is afebrile. Pulse is in the 80s to low 100s, blood pressure 96 to-124 systolic, O2 saturation 95 to 99 percent. Urine output 1320 mL. General: He is awake, alert, oriented x3. No acute distress. GI: Soft, nontender, nondistended. Extremities: His left AKA stump dressing is clean and dry. His right foot is warm. ASSESSMENT/PLAN: A 53-year-old male status post femoral-femoral bypass, left above-knee amputation and right iliac angioplasty. We will advance him to a diabetic diet, and transfer him to the floor as beds becomes available. cc: MD Saqib Gallegos MD
[2018-05-13] MEDS: LOVENOX SUBQ SCH ×2 (17:08→19:26)
[2018-05-14] MEDS: PROTONIX IV SCH ×5 (00:06→23:37)
[2018-05-14] MEDS: NORCO-10 PO PRN ×2 (01:57→08:13)
[2018-05-14] MEDS: HUMULIN R SUBQ SCH ×4 (02:11→22:05)
[2018-05-14 06:15] LABS: BASO# 0.06 X1000 (0.0-0.2); BASO% 0.4 % (0.0-0.8); EOS# 0.14 X1000 (0.0-0.7); EOS% 0.8 % (0.0-10.0); HEMATOCRIT 33.7 % (42.0-52.0); IMM GRAN# 0.34 X1000 (0.0-0.04); LYMPH# 2.23 X1000 (1.2-3.4); LYMPH% 13.2 % (20.5-51.1); MCH 29.3 PG (27-31); MCHC 32.6 g/dL (33-37); MCV 89.9 FL (81-99); MONO# 0.83 X1000 (0.11-0.59); MONO% 4.9 % (1.7-9.3); MPV 10.5 FL (7.4-10.4); NEUT# 13.34 X1000 (1.4-6.5); NEUT% 78.7 % (42.2-75.2); PLT 319 X1000 (130-400); RBC 3.75 XMIL (4.7-6.1); RDW 14.4 % (11.5-14.5); WBC 16.94 X1000 (4.8-10.8)
[2018-05-14 06:27] LABS: AGAP 13; ALB/GLOB RATIO 0.5; ALBUMIN 2.4 g/dL (3.5-5.0); ALKALINE PHOSPHATASE 245 U/L (32-122); BUN 16 mg/dL (8-22); CALCIUM 8.6 mg/dL (8.8-10.2); CHLORIDE 106 mmol/L (98-107); COSMO 277; CREATININE 0.6 mg/dL (0.7-1.2); ESTIMATED GFR > 60; GLUCOSE 139 mg/dL (70-104); GOT 100 U/L (10-34); GPT 94 U/L (10-44); MAGNESIUM 1.9 mg/dL (1.5-2.7); PHOSPHORUS 3.5 mg/dL (2.7-4.5); SODIUM 137 mmol/L (136-145); TCO2 18 mmol/L (25-35); TOTAL BILIRUBIN 0.58 mg/dL (0.20-1.00); TOTAL PROTEIN 7.1 g/dL (6.3-8.3)
[2018-05-14 06:39] LABS: CK TOTAL 2392 U/L (24-204)
[2018-05-14] MEDS ORDERED: MOVANTIK PO SCH (07:00)
[2018-05-14] MEDS: 1/2 NS 1,000 ML IV SCH ×2 (08:10→18:14)
[2018-05-14] MEDS: LOPRESSOR PO SCH ×2 (08:11→20:16)
[2018-05-14] MEDS: MIRALAX PO SCH ×2 (08:11→20:37)
[2018-05-14] MEDS: DULCOLAX PR SCH ×2 (08:11→20:16)
[2018-05-14] MEDS: MAXIPIME 2 GM in NS 100 ML IV SCH ×2 (08:11→20:16)
[2018-05-14] MEDS: SODIUM CHLORIDE 0.9% INJ SCH ×2 (08:12→20:16)
[2018-05-14] MEDS: PEPCID PO SCH (08:12)
[2018-05-14] MEDS: ASPIRIN EC PO SCH (08:12)
[2018-05-14] MEDS: LACTULOSE PO SCH ×2 (08:12→20:16)
--- NOTE | 2018-05-14 10:13 | GENERAL SURGERY PROGRESS NOTE ---
DATE: 05/14/2018 SUBJECTIVE: The patient said he ate a little bit of food yesterday, but does not want any today. He just does not feel hungry. OBJECTIVE: Vitals: He is afebrile. Vital signs are stable. Pulse remains in the 90s to low 100s. He did have 4 more recorded bowel movements over the last 24 hours. General: He is alert and oriented x3. No acute distress. GI: Soft, mildly tender in the abdomen. No rebound or guarding. Extremities: His left AKA stump dressing is clean and dry. The right foot is warm. LABORATORY: White blood cell count 16.9, hemoglobin 11, hematocrit 33.7. Electrolytes reviewed and unremarkable. ASSESSMENT AND PLAN: A 53-year-old male, status post femoral-femoral bypass and left AKA. He continues to make slow progress. We will keep him on a soft diet, Lovenox. However, we will continue his cefepime for now, which I think has been started for pneumonia. He does not have any respiratory distress. cc: MD Saqib Gallegos MD
[2018-05-14] MEDS: LOVENOX SUBQ SCH (18:14)
[2018-05-14] MEDS ORDERED: RELISTOR SUBQ ONE (18:49)
--- NOTE | 2018-05-14 19:22 | PROGRESS NOTE ---
DATE: 05/14/2018 SUBJECTIVE: He is still having some complaints of abdominal distention. Reports no bowel movement, but he has had two recorded, one before that yesterday so I am not quite sure what to make out of that. OBJECTIVE: Vital Signs: Blood pressure 118/75, heart rate 99, respiratory rate 20, temperature 98, 100% on 4 L. Cardiovascular: Regular rate and rhythm. Pulmonary: Bilateral breath sounds. Clear to auscultation. Gastrointestinal: Soft, nontender, nondistended. Bowel sounds were positive. On abdominal exam, he definitely has some distension, but it is improved and he has bowel sounds. Extremity: No clubbing or cyanosis. Lymphatic: No peripheral edema. Neurologic: Exam was nonfocal. LABORATORY DATA: White count is 16, hemoglobin and hematocrit 11 and 33, platelets of 319,000. Basic looked okay. CPK is down to 2392. PROBLEM LIST: 1. Left gunzj-wic-uiql amputation. Surgery is following. His incision looks clean, dry, intact. Continue wound care. 2. Encephalopathy, seems to be resolving. 3. Acute kidney injury, has resolved on IV fluids. 4. Ileus. We will continue bowel regimen. This may be related to just being major surgery and multiple other issues. He is currently on MiraLAX, which I think we may bump up to twice a day. He is on lactulose. He had been on Movantik which I am probably going to give him a dose of relistor today. 5. Leukocytosis, gram-negative type pneumonia. He is on cefepime. I will do chest and abdomen films in the morning, see how he does. DISPOSITION: Pending his clinical status. We will continue to follow with Surgery. cc: Saqib Mejia MD [facility]
[2018-05-15] MEDS: HUMULIN R SUBQ SCH ×4 (01:46→21:16)
[2018-05-15] MEDS: 1/2 NS 1,000 ML IV SCH ×3 (06:10→21:22)
[2018-05-15 06:34] LABS: BASO# 0.05 X1000 (0.0-0.2); BASO% 0.3 % (0.0-0.8); EOS# 0.16 X1000 (0.0-0.7); EOS% 0.9 % (0.0-10.0); HEMATOCRIT 34.3 % (42.0-52.0); IMM GRAN# 0.38 X1000 (0.0-0.04); IMM GRAN% 2.2 % (0.0-0.5); LYMPH# 2.21 X1000 (1.2-3.4); LYMPH% 12.7 % (20.5-51.1); MCH 28.9 PG (27-31); MCHC 32.1 g/dL (33-37); MONO# 0.71 X1000 (0.11-0.59); MONO% 4.1 % (1.7-9.3); MPV 10.6 FL (7.4-10.4); NEUT# 13.83 X1000 (1.4-6.5); NEUT% 79.8 % (42.2-75.2); PLT 348 X1000 (130-400); RBC 3.81 XMIL (4.7-6.1); RDW 14.5 % (11.5-14.5); WBC 17.34 X1000 (4.8-10.8)
[2018-05-15 07:04] LABS: AGAP 15; BUN 15 mg/dL (8-22); CALCIUM 8.9 mg/dL (8.8-10.2); CHLORIDE 109 mmol/L (98-107); COSMO 284; CREATININE 0.6 mg/dL (0.7-1.2); ESTIMATED GFR > 60; GLUCOSE 125 mg/dL (70-104); MAGNESIUM 1.9 mg/dL (1.5-2.7); PHOSPHORUS 3.5 mg/dL (2.7-4.5); POTASSIUM 3.9 mmol/L (3.5-5.1); SODIUM 141 mmol/L (136-145); TCO2 17 mmol/L (25-35)
[2018-05-15] MEDS: LOPRESSOR PO SCH ×2 (08:44→21:16)
[2018-05-15] MEDS: ASPIRIN EC PO SCH (08:44)
[2018-05-15] MEDS: MAXIPIME 2 GM in NS 100 ML IV SCH ×2 (08:44→21:14)
[2018-05-15] MEDS: MIRALAX PO SCH ×2 (08:45→21:21)
[2018-05-15] MEDS: DULCOLAX PR SCH ×2 (08:45→21:21)
[2018-05-15] MEDS: PEPCID PO SCH (08:45)
[2018-05-15] MEDS: PROTONIX IV SCH ×4 (08:45→23:52)
[2018-05-15] MEDS: LACTULOSE PO SCH ×2 (08:45→21:21)
[2018-05-15] MEDS: SODIUM CHLORIDE 0.9% INJ SCH ×2 (08:45→21:16)
--- NOTE | 2018-05-15 09:55 | Diag Imaging Result Doc PS360 ---
KUB ABDOMEN - 05/15/2018 INDICATION: ileus COMPARISON: 05/12/2018 FINDINGS: There are stable surgical skin luisito over both inguinal canals. There is stable significant hyperinflation of the colon down to the level of the distal sigmoid colon. There is very little rectal gas. There is no significant small bowel gas visible. No definite free air. IMPRESSION: Stable nonspecific colonic hyperinflation suggesting colonic ileus. Electronically signed by Jose David Reid 05/15/2018 9:52 AM
--- NOTE | 2018-05-15 09:56 | Diag Imaging Result Doc PS360 ---
CHEST-PORTABLE - 05/15/2018 INDICATION: dyspnea COMPARISON: 05/12/2018 FINDINGS: The lungs are normally expanded and clear. Heart size and mediastinal contours are normal. No pneumothorax or pleural effusion. There is a stable right subclavian central line. IMPRESSION: Negative exam. Electronically signed by Jose David Reid 05/15/2018 9:53 AM
--- NOTE | 2018-05-15 14:21 | PROGRESS NOTE ---
DATE: 05/15/2018 SUBJECTIVE: Shawn Martinez has been moved to the floor over the weekend. He has had a left cebpb-klu-nycu amputation. He has also had angioplasty of his right iliac arteries with a fem-fem arterial bypass graft. His abdomen is softer than when I left Tuesday. We are encouraging him to eat. He needs a trapeze bar over the bed. We will get Physical Therapy consulted. OBJECTIVE: Vital Signs: His heart rate is 77 to 92, his blood pressure 107/68. O2 saturation 98%. He is afebrile. Exam: He is being treated for pneumonia. His left crlpl-bbl-oakx amputation wound seems to be intact without evidence of infection. Wounds in his groin seem to be intact also and there is again no evidence of infection. LABORATORY: His white blood cell count is 17, hematocrit is 34%. His BUN and creatinine are now 15 and 0.6. cc: MD Estiven Mora MD
--- NOTE | 2018-05-15 17:09 | PROGRESS NOTE ---
DATE: 05/15/2018 SUBJECTIVE: The patient is having some abdominal distention. He is passing gas. He is passing flatus. He has had liquid bowel movements OBJECTIVE: Vital signs: Blood pressure is 126/66 with a heart rate of 77 respirations 18, temperature is 98.6 degrees oral with room air saturations 95% to 100%. Cardiovascular: Regular rate and rhythm. S1 and S2 appreciated. Pulmonary: Breath sounds are clear with no increased work of breathing noted. Gastrointestinal: Abdomen is soft, nondistended, with bowel sounds in all 4 quadrants. DIAGNOSTIC STUDIES: Labs WBC is 17.3 with hemoglobin 11, hematocrit 34.3, and platelets of 348,000. Sodium 141, potassium 3.9, BUN 15, creatinine 0.6 with a glucose of 154. PROBLEM LIST: 1. Left etrsv-eda-tcga amputation. Incision is intact, clean, and dry. He is being followed by General Surgery. 2. Encephalopathy. This is resolving. We will continue to follow. 3. Acute kidney injury. Has resolved after hydration with creatinines of 0.6 to 0.8. 4. Ileus. We will continue bowel regimen. 5. Leukocytosis. 6. Gram-negative type pneumonia. We will continue antibiotics. Chest x-ray today revealed a negative exam. Dictated by DHEERAJ Jeffers for Estiven Thomas MD This chart was documented by, DHEERAJ Jeffers and accurately reflects the services performed, treatment plan and medical decisions as attested by the providers signature Estiven Thomas MD. cc: DHEERAJ Jeffers MD
[2018-05-15] MEDS: LOVENOX SUBQ SCH (18:02)
[2018-05-16] MEDS: HUMULIN R SUBQ SCH ×4 (01:37→22:52)
[2018-05-16 06:10] LABS: BASO# 0.03 X1000 (0.0-0.2); BASO% 0.2 % (0.0-0.8); EOS% 0.7 % (0.0-10.0); HEMATOCRIT 31.6 % (42.0-52.0); HEMOGLOBIN 10.5 g/dL (14.0-18.0); IMM GRAN# 0.26 X1000 (0.0-0.04); IMM GRAN% 1.9 % (0.0-0.5); LYMPH# 2.24 X1000 (1.2-3.4); LYMPH% 16.1 % (20.5-51.1); MCH 28.9 PG (27-31); MCHC 33.2 g/dL (33-37); MCV 87.1 FL (81-99); MONO# 0.72 X1000 (0.11-0.59); MONO% 5.2 % (1.7-9.3); MPV 10.3 FL (7.4-10.4); NEUT# 10.58 X1000 (1.4-6.5); NEUT% 75.9 % (42.2-75.2); PLT 386 X1000 (130-400); RBC 3.63 XMIL (4.7-6.1); RDW 14.3 % (11.5-14.5); WBC 13.93 X1000 (4.8-10.8)
[2018-05-16] MEDS: NORCO-10 PO PRN (06:15)
[2018-05-16 06:33] LABS: AGAP 12; ALB/GLOB RATIO 0.7; ALBUMIN 2.7 g/dL (3.5-5.0); ALKALINE PHOSPHATASE 171 U/L (32-122); BUN 14 mg/dL (8-22); CALCIUM 8.7 mg/dL (8.8-10.2); CHLORIDE 110 mmol/L (98-107); COSMO 286; CREATININE 0.6 mg/dL (0.7-1.2); ESTIMATED GFR > 60; GLUCOSE 144 mg/dL (70-104); GOT 55 U/L (10-34); GPT 72 U/L (10-44); POTASSIUM 3.6 mmol/L (3.5-5.1); SODIUM 142 mmol/L (136-145); TCO2 20 mmol/L (25-35); TOTAL BILIRUBIN 0.39 mg/dL (0.20-1.00); TOTAL PROTEIN 6.6 g/dL (6.3-8.3)
[2018-05-16 06:48] LABS: CK PROFILE 749 U/L (24-204)
[2018-05-16 07:21] LABS: CK INDEX 0.3 (0.0-2.5); CK-MB 1.89 ng/mL (0.0-5.0)
[2018-05-16] MEDS: 1/2 NS 1,000 ML IV SCH ×2 (10:07→22:50)
[2018-05-16] MEDS: MAXIPIME 2 GM in NS 100 ML IV SCH ×2 (10:08→22:51)
[2018-05-16] MEDS: PROTONIX IV SCH ×2 (10:10→22:52)
[2018-05-16] MEDS: SODIUM CHLORIDE 0.9% INJ SCH ×2 (10:10→22:52)
[2018-05-16] MEDS: ASPIRIN EC PO SCH (10:11)
[2018-05-16] MEDS: LOPRESSOR PO SCH ×2 (10:11→22:52)
[2018-05-16] MEDS: PEPCID PO SCH (10:11)
[2018-05-16] MEDS: DULCOLAX PR SCH ×2 (10:12→22:53)
[2018-05-16] MEDS: LACTULOSE PO SCH ×2 (10:12→22:56)
[2018-05-16] MEDS: MIRALAX PO SCH ×2 (10:13→22:57)
--- NOTE | 2018-05-16 11:40 | PROGRESS NOTE ---
DATE: 05/16/2018 Mr. Martinez is status post left xrsxz-qxs-eqqs amputation. The stump seems to be healing well, as does his groin incisions. His right leg continues to be warm. He is able to eat. His abdomen is mostly soft. We have asked physical therapy to work with him. We need to start working towards getting him to rehab. His labs continue to improve. cc: MD Estiven Mora MD
--- NOTE | 2018-05-16 15:25 | PROGRESS NOTE ---
DATE: 05/16/2018 SUBJECTIVE: This patient is status post left AKA, Surgery Department has been following this patient closely and it looks like the stump is healing well as well as his groin incisions, his WBC is trending down. There is no reported fever or chills for the past few days. Vital signs are stable and lab work looks better, his kidney injury resolved. He CK level is trending down nicely. At some point the CK level was 6230 and today is 749 likely due to the ischemic process. Will continue with the same management, I believe this patient can be discharged in the next 24 hours if everything is okay. OBJECTIVE: Vital Signs: Temperature 98.1 degrees, pulse 88, respiratory rate 18, blood pressure 120/70, oxygen saturation 99 on room air. HEENT: Head normocephalic. No trauma. PERRLA. Neck: Supple. No JVD. No masses. Central trachea. Chest: Clear to auscultation. No wheezing. No rales. Abdomen: Soft, slightly distended, positive bowel sounds but decreased. Extremities: Left BKA. Neurological: The patient is alert and oriented x3. No focal deficits. LABORATORY: WBC 13.9, hemoglobin 10.5, hematocrit 31.6, platelets 386,000. Sodium 142, potassium 3.6, chloride 110, bicarbonate 20, BUN 14, creatinine 0.6, glucose 144, calcium 8.7, AST 55, ALT 72, alkaline phosphatase 171. CK 749, albumin 2.7. ASSESSMENT AND PLAN: 1. Left above-knee amputation, surgery following this patient. The incision looks clean, dry and intact. Continue with wound care. 2. Encephalopathy resolved. 3. Acute kidney injury resolved. 4. Ileus. This patient is having some bowel movements mostly liquid, continue with the same bowel regimen. X-ray a few days ago showed stable nonspecific colonic hyperinflation suggestive of colonic ileus. 5. Leukocytosis. This patient is on cefepime, probably this patient has a underlying pneumonia before but at this moment he has no symptoms. On the CT angiogram done on 05/12/2018 showed bibasilar atelectasis versus pneumonia, he has been covered with antibiotics, WBC trending down. Continue with same management. 6. Elevated liver enzymes. This is improving. Continue with the same management. He is getting IV fluids. He is tolerating p.o. No nausea, no vomiting. 7. Type 2 diabetes. Continue with sliding scale insulin. He is on Farxiga at home and Glucophage as well which we will continue once he is discharged. 8. Physical deconditioning. Likely this patient will need to be discharged to a rehab center, director social service working on that. cc: Estiven Thomas MD
[2018-05-16] MEDS: LOVENOX SUBQ SCH (17:33)
[2018-05-17] MEDS: HUMULIN R SUBQ SCH ×4 (02:08→20:49)
[2018-05-17 06:03] LABS: BASO# 0.04 X1000 (0.0-0.2); BASO% 0.3 % (0.0-0.8); EOS# 0.08 X1000 (0.0-0.7); EOS% 0.7 % (0.0-10.0); HEMATOCRIT 30.9 % (42.0-52.0); HEMOGLOBIN 10.3 g/dL (14.0-18.0); IMM GRAN% 1.6 % (0.0-0.5); LYMPH% 15.6 % (20.5-51.1); MCHC 33.3 g/dL (33-37); MONO# 0.56 X1000 (0.11-0.59); MONO% 4.6 % (1.7-9.3); MPV 9.9 FL (7.4-10.4); NEUT# 9.39 X1000 (1.4-6.5); NEUT% 77.2 % (42.2-75.2); PLT 416 X1000 (130-400); RBC 3.55 XMIL (4.7-6.1); RDW 14.3 % (11.5-14.5); WBC 12.17 X1000 (4.8-10.8)
[2018-05-17 06:38] LABS: AGAP 11; ALB/GLOB RATIO 0.9; ALBUMIN 2.7 g/dL (3.5-5.0); ALKALINE PHOSPHATASE 144 U/L (32-122); BUN 10 mg/dL (8-22); CALCIUM 8.6 mg/dL (8.8-10.2); CHLORIDE 108 mmol/L (98-107); COSMO 280; CREATININE 0.5 mg/dL (0.7-1.2); ESTIMATED GFR > 60; GLUCOSE 123 mg/dL (70-104); GOT 37 U/L (10-34); GPT 59 U/L (10-44); MAGNESIUM 1.6 mg/dL (1.5-2.7); POTASSIUM 3.7 mmol/L (3.5-5.1); SODIUM 140 mmol/L (136-145); TCO2 21 mmol/L (25-35); TOTAL BILIRUBIN 0.36 mg/dL (0.20-1.00); TOTAL PROTEIN 5.6 g/dL (6.3-8.3)
[2018-05-17 06:42] LABS: CK PROFILE 473 U/L (24-204)
[2018-05-17 07:35] LABS: CK INDEX 0.3 (0.0-2.5); CK-MB 1.55 ng/mL (0.0-5.0)
--- NOTE | 2018-05-17 08:30 | PROGRESS NOTE ---
DATE: 05/17/2018 SUBJECTIVE: Mr. Martinez is status post left odcpf-chk-ezrx amputation and also angioplasty of right iliac arteries with femoral-femoral arterial bypass. OBJECTIVE: Vitals: His heart rate is 87, blood pressure 114/75, O2 saturation 100%. Lower extremities: His groin wounds and left ygoeu-nrm-mwnp amputation wound seem to be healing without infection. He seems to have good flow to his right lower extremity that has a transmetatarsal amputation, which is well healed. LABORATORY: His white blood cell count is decreasing. It is 12 today. He is on antibiotics. His hematocrit is 31%. BUN and creatinine are 10 and 0.5. His other electrolytes are improving also. He is eating about 50% of his meals. He states that he is having bowel activity. His abdomen is soft. He has a trapeze bar over his bed. ASSESSMENT AND PLAN: We have asked Physical Therapy to see him and we need to look towards rehab at discharge. cc: MD Estiven Mora MD
[2018-05-17] MEDS: MAXIPIME 2 GM in NS 100 ML IV SCH ×2 (08:46→20:48)
[2018-05-17] MEDS: 1/2 NS 1,000 ML IV SCH ×3 (09:52→20:49)
[2018-05-17] MEDS: SODIUM CHLORIDE 0.9% INJ SCH ×2 (09:52→20:49)
[2018-05-17] MEDS: PROTONIX IV SCH ×3 (09:52→23:04)
--- NOTE | 2018-05-17 10:18 | GENERAL SURGERY PROGRESS NOTE ---
DATE: 05/17/2018 SUBJECTIVE: Mr. Martinez is 8 days after his fem-fem bypass in connection with his above-knee amputation. His groin wounds looked fine. There is no significant swelling. His right leg is warm. ASSESSMENT: It appears to be healing his groin wound satisfactorily. His fem-fem graft is functional. cc: MD Estiven Mcintosh MD
[2018-05-17] MEDS: DULCOLAX PR SCH ×2 (10:32→20:49)
[2018-05-17] MEDS: LACTULOSE PO SCH ×2 (10:32→20:49)
[2018-05-17] MEDS: MIRALAX PO SCH ×2 (10:32→20:48)
[2018-05-17] MEDS: PEPCID PO SCH (10:35)
[2018-05-17] MEDS: NORCO-10 PO PRN ×3 (10:35→22:41)
[2018-05-17] MEDS: LOPRESSOR PO SCH ×2 (10:35→20:48)
[2018-05-17] MEDS: ASPIRIN EC PO SCH (10:36)
--- NOTE | 2018-05-17 16:09 | PROGRESS NOTE ---
DATE: 05/17/2018 SUBJECTIVE: No acute events overnight. This patient is completely alert and oriented x3. He is not complaining of pain at this moment. His groin wound looks good, as well as his recent AKA. OBJECTIVE: Vital Signs: Temperature 98.4 degrees, pulse 89, respiratory rate 22, blood pressure 103/44, oxygen saturation 98 on room air. HEENT: Head normocephalic, no trauma. PERRLA. Neck: Supple. No JVD. No masses. Central trachea. Chest: Clear to auscultation. No wheezing. No rales. Abdomen: Soft, slightly distended. Positive bowel sounds. Extremities: Left AKA, right mid foot amputation. Neurological: The patient is alert and oriented x3. No focal deficits. LABORATORY STUDIES: WBC 12, hemoglobin 10.3, hematocrit 30.9, platelets 416,000. Sodium 140, potassium 3.7, chloride 108, bicarbonate 21, BUN 10, creatinine 0.5, glucose 126, calcium 8.6, AST 37, ALT 59, alkaline phosphatase 144. CK 473. Albumin 2.7. ASSESSMENT AND PLAN: 1. Left ofsec-bqc-jkex amputation. Surgery Department following this patient. The incision looks clean, dry and intact. Continue with wound care. 2. Encephalopathy, resolved. 3. Acute kidney injury, resolved. 4. Ileus. This is getting better. 5. Leukocytosis, trending down. Continue with antibiotics. I do not think we need to continue with antibiotics upon discharge. WBC trending down, and he received more than 5 days of cefepime. He has no complaint of shortness of breath. CT angiogram done on 05/12/2018 showed bibasilar atelectasis versus pneumonia. 6. Elevated liver enzymes. This is getting much better. We will continue with same management. He is getting IV fluids. He is tolerating p.o. No nausea. No vomiting. 7. Type 2 diabetes. Continue with sliding scale insulin and pattern of blood sugar. 8. Elevated CK level, likely due to his ischemic leg that has been already amputated. This is going back to normal. 9. Physical deconditioning, likely this patient will need to go to a rehabilitation center upon discharge. jig worker on board. I believe he is going to be able to go tomorrow or today in the afternoon. cc: Estiven Thomas MD
[2018-05-17] MEDS: LOVENOX SUBQ SCH (17:41)
[2018-05-18 06:15] LABS: BASO# 0.02 X1000 (0.0-0.2); BASO% 0.2 % (0.0-0.8); EOS# 0.05 X1000 (0.0-0.7); EOS% 0.5 % (0.0-10.0); HEMATOCRIT 29.7 % (42.0-52.0); HEMOGLOBIN 9.9 g/dL (14.0-18.0); IMM GRAN# 0.14 X1000 (0.0-0.04); IMM GRAN% 1.4 % (0.0-0.5); LYMPH# 2.04 X1000 (1.2-3.4); MCH 28.9 PG (27-31); MCHC 33.3 g/dL (33-37); MCV 86.6 FL (81-99); MONO# 0.48 X1000 (0.11-0.59); MONO% 4.7 % (1.7-9.3); MPV 9.8 FL (7.4-10.4); NEUT# 7.45 X1000 (1.4-6.5); NEUT% 73.2 % (42.2-75.2); PLT 416 X1000 (130-400); RBC 3.43 XMIL (4.7-6.1); RDW 14.2 % (11.5-14.5); WBC 10.18 X1000 (4.8-10.8)
[2018-05-18 06:29] LABS: AGAP 14; ALB/GLOB RATIO 0.8; ALBUMIN 2.6 g/dL (3.5-5.0); ALKALINE PHOSPHATASE 115 U/L (32-122); BUN 9 mg/dL (8-22); CALCIUM 8.5 mg/dL (8.8-10.2); CHLORIDE 109 mmol/L (98-107); COSMO 285; CREATININE 0.5 mg/dL (0.7-1.2); ESTIMATED GFR > 60; GLUCOSE 125 mg/dL (70-104); GOT 25 U/L (10-34); GPT 46 U/L (10-44); POTASSIUM 3.3 mmol/L (3.5-5.1); SODIUM 143 mmol/L (136-145); TCO2 20 mmol/L (25-35); TOTAL BILIRUBIN 0.32 mg/dL (0.20-1.00)
[2018-05-18 06:39] LABS: CK PROFILE 367 U/L (24-204)
[2018-05-18 07:08] LABS: CK INDEX 0.4 (0.0-2.5); CK-MB 1.63 ng/mL (0.0-5.0)
[2018-05-18] MEDS ORDERED: KLOR-CON PO ONE (09:30)
[2018-05-18] MEDS: MAXIPIME 2 GM in NS 100 ML IV SCH (10:45)
[2018-05-18] MEDS: SODIUM CHLORIDE 0.9% INJ SCH (10:47)
[2018-05-18] MEDS: MIRALAX PO SCH (10:47)
[2018-05-18] MEDS: PEPCID PO SCH (10:47)
[2018-05-18] MEDS: PROTONIX IV SCH (10:47)
[2018-05-18] MEDS: LACTULOSE PO SCH (10:47)
[2018-05-18] MEDS: NORCO-10 PO PRN (10:47)
[2018-05-18] MEDS: LOPRESSOR PO SCH (10:48)
[2018-05-18] MEDS: ASPIRIN EC PO SCH (10:48)
[2018-05-18] MEDS: 1/2 NS 1,000 ML IV SCH (10:48)
[2018-05-18] MEDS: HUMULIN R SUBQ SCH (10:54)
[2018-05-18] MEDS: DULCOLAX PR SCH (10:54)
--- NOTE | 2018-05-18 11:17 | DISCHARGE SUMMARY ---
ADMISSION DATE: 05/08/2018 DISCHARGE DATE: 05/18/2018 ADMITTING DIAGNOSIS: Ischemic left lower extremity. DISCHARGE DIAGNOSIS: Ischemic left lower extremity. PRINCIPAL PROCEDURE: 1. Extremity arterial study. 2. Computed tomography angiogram of the aorta with runoff. 3. Left fdenf-mgz-gnnt amputation. 4. Angioplasty right iliac arteries with femoral-femoral arterial bypass. DISCHARGE DIET: Diabetic diet. DISCHARGE DISABILITY: Full. DISCHARGE DISPOSITION: He is going to rehab with follow-up in my outpatient offices once discharged from rehab. DISCHARGE MEDICATIONS: He is to continue his home medications. HOSPITAL COURSE: Mr. Shawn Martinez is a 53-year-old black male with known peripheral vascular disease and previous angioplasty and stent of his iliac arteries per Dr. Lemon at least 4 years ago. He also has a transmetatarsal amputation distal right foot. He presented to my outpatient office with an ischemic well and dying left lower extremity. He was admitted from my outpatient office to the hospital where we evaluated his arterial flow. 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 His left iliac arteries were occluded. On hospital day 2, we took him to the operating room and performed balloon angioplasty of the right iliac vessels and then a femoral- femoral arterial bypass graft and a left raiia-rge-hfuu amputation. After that surgery, he went to the ICU initially and then he was transferred to the floor where clinically he improved daily. On admission he had tissue involving his left leg with elevated liver function tests and other laboratories studies, which improved with removal of his left leg. All his wounds were healing at the time of discharge, which included wounds involving both groins and his left ugvfo-iqp-aenc amputation. He is able to tolerate a diet. He is up and alert with a trapeze bar over his bed. His white blood cell count was normal as were his electrolytes at discharge. At discharge his heart rate was 78, blood pressure 124/71, O2 saturation 97% and he was afebrile. At rehab, he needs to learn how to be as mobile as possible. Maybe we can fit him with an above the knee prosthesis because he is young. His skin clips we will have to remain in his groin for another week and maybe even longer and his left dggqj-ddv-ahwe amputation stump. cc: MD Estiven Mora MD
[2018-05-18 11:37] VITALS: BP 92/59
--- NOTE | 2018-05-18 18:06 | PROGRESS NOTE ---
DATE: 05/18/2018 SUBJECTIVE: No acute events overnight. OBJECTIVE: Vital Signs: Temperature 98.5, pulse 75, respiratory rate 16, blood pressure 92/59. Oxygen saturation 100% on room air. HEENT: Head normocephalic. No trauma. PERRLA. Neck: Supple. No JVD. No masses. Central trachea. Chest: Clear to auscultation. No wheezing. No rales. Abdomen: Soft, slightly distended, but positive bowel sounds. Extremities: Left AKA. Right mid foot amputation. Neurologic: Alert and oriented x 3. No focal deficits. LABORATORY: WBC 10.1, hemoglobin 9.9, hematocrit 29.7, platelets 416,000. Sodium 143, potassium 3.3, chloride 109, bicarbonate 20, BUN 9, creatinine 0.5, glucose 125, calcium 8.5, AST 25, ALT 46, alkaline phosphatase 115. CK 367, albumin 2.6. ASSESSMENT AND PLAN: 1. Left fvreh-lbo-gqtw amputation, it looks like this is healing well. It looks clean, dry and intact, Surgery on board. 2. Encephalopathy, resolved. 3. Acute kidney injury, resolved. 4. Mild hypokalemia. I will replace the potassium. 5. Ileus, resolved. 6. Leukocytosis. Today the white blood cell is normal. 7. Elevated liver function tests. This is trending down nicely. Hopefully will be at his baseline, which is normal. 8. Elevated CK level, trending down. Getting much better on a daily basis. 9. Type 2 diabetes. Continue with the same management. 10. Physical deconditioning. This patient will be discharged to a rehab center. cc: Estiven Thomas MD
== END 2018-05-18 14:34 | DRG 853 ==
LOC: DIRADM 15:58 → 4N 16:27 → ICU 05-09 15:52 → 4N 05-13 16:00
PROVIDERS: ADMIT Internal Medicine; ATTEND Surgery
CPT/HCPCS: 36140; 36430; 70450; 71010; 71045; 71275; 74000; 74018; 74019; 74020; 75635; 76770; 80048; 80053; 80074; 81001; 81240; 81241; 82140; 82330; 82550; 82553; 82570; 82805; 82947; 82948; 83036; 83605; 83735; 84100; 84132; 84295; 84300; 84439; 84443; 84484; 84540; 85014; 85018; 85025; 85300; 85301; 85302; 85306; 85610; 85612; 85613; 85730; 86147; 86850; 86900; 86901; 86920; 87040; 87088; 88304; 88307; 88311; 93005; 93010; 93923; 93924; 94660; 94761; 97110; 97162; 97530; A9270; C1725; C1768; C9113; J0131; J0330; J0690; J0692; J1644; J1650; J2270; J2370; J2405; J2543; J3010; J3370; J7030; J7040; P9016; Q9967; S0164; XXXXX

== ENCOUNTER 2018-06-10 03:50 | Inpatient (IN) ==
[2018-06-10] MEDS ORDERED: NS 1,000 ML IV ONE (04:02)
[2018-06-10] MEDS ORDERED: ZOSYN 4.5 GM in NS 100 ML IV ONE (04:02)
[2018-06-10] MEDS ORDERED: VANCOMYCIN 1 GM/NS 1 GM/250 ML IVPB IV ONE (04:02)
--- NOTE | 2018-06-10 04:14 | PROVIDER DOCUMENTATION ---
HPI-General Adult - General Chief Complaint: Post Op Complaint Stated Complaint: post op complaint Time Seen by Provider: 06/10/18 03:55 Source: patient, EMS Allergies/Adverse Reactions: Patient Allergies Allergy/AdvReac Type Severity Reaction Status Date / Time latex Allergy RASH Verified 06/10/18 04:04 Home Medications: Home Medication List Medication Instructions Recorded Confirmed Last Taken Type Aspirin 325 mg PO DAILY 03/14/15 06/10/18 03/12/15 08:00 History Calamine Lotion 1 applicatn TOP PRN PRN #1 bottle 03/14/15 06/10/18 Unknown Rx Dapagliflozin Propanediol [Farxiga] 5 mg PO DAILY 03/14/15 06/10/18 03/12/15 08:00 History Famotidine [Pepcid] 20 mg PO DAILY #20 tablet 03/14/15 06/10/18 Unknown Rx Hydroxyzine [Atarax] 50 mg PO TID PRN #10 tablet 03/14/15 06/10/18 Unknown Rx Metformin [Glucophage] 500 mg PO DAILY 03/14/15 06/10/18 03/12/15 08:00 History Meloxicam [Mobic] 7.5 mg PO DAILY PRN PRN #15 tablet 02/15/16 06/10/18 Unknown Rx Hydrocodone/Acetaminophen [[place] 10 - 325 mg PO Q6H PRN 06/10/18 06/10/18 Unknown History 10-325 Tablet] Sitagliptin Phosphate [Januvia] 100 mg PO DAILY 06/10/18 06/10/18 Unknown Hist ory - History of Present Illness -Gen Adult Nature of Presenting Problems: 53 y/o M presents to the ED complaining of drainage from his AKA stump. States he had his AKA done 2 weeks ago and since going home has had drainage but has not followed up with surgery. States home health has been dressing his wounds and encouraging him to have his wound evaluated but he has been refusing. States tonight the drainage soaked his pants and he was annoyed so came to the ED. No fever. In review of records pt had a AKA on 05/09 along with a fem-fem bypass for an ischemic and "" limb. Pt states he has not followed up with anyone since discharge. Review of Systems - Adult - REVIEW OF SYSTEMS - ADULT Constitutional: reports: no symptoms reported Eyes: reports: no symptoms reported Ears, Nose, Mouth & Throat: reports: no symptoms reported Cardiovascular: reports: no symptoms reported Respiratory: reports: no symptoms reported Gastrointestinal: reports: no symptoms reported Genitourinary: reports: no symptoms reported Musculoskeletal: reports: other (wound with drainage) Integumentary: reports: no symptoms reported Neurological: reports: no symptoms reported Psychiatric: reports: no symptoms reported Endocrine: reports: no symptoms reported Hematologic/Lymphatic: reports: no symptoms reported Allergic/Immunologic: reports: no symptoms reported All Other Systems: Reviewed and Negative Past History - Adult - PAST MEDICAL HISTORY-ADULT Review of Records: reports: Old Records Reviewed, Nursing Assessment Review, Medications Reviewed, Social history reviewed & non-contributory. Major Childhood Illnesses: reports: denies history Cardiovascular: reports: PVD Respiratory: reports: denies history Gastrointestinal: reports: denies history Obstetrical/Gynecological: reports: denies history Genitourinary: reports: denies history Musculoskeletal: reports: denies history Neurological: reports: denies history Endocrine/Immune: reports: Diabetes Other Conditions: reports: denies history - PRIOR SURGERIES/PROCEDURES Surgical/Procedure History: reports: other (partial foot amputation) - IMMUNIZATION STATUS Childhood Immunizations: See Nurse Assessment Flu Vaccine: See Nurse Assessment - FAMILY HISTORY Family History: reviewed, not pertinent Physical Exam-General - PHYSICAL EXAM-ADULT Initial Vital Signs Reviewed: Yes - CONSTITUTIONAL General Appearance: appears well, alert, no apparent distress - EYES Eyes: PERRL/EOMI - HEAD, EARS, NOSE, MOUTH & THROAT HENMT: normocephalic/atraumatic, moist mucous membranes, normal ENT inspection - NECK Neck: non-tender, full range of motion, supple - RESPIRATORY Respiratory: chest non-tender, lungs clear, normal breath sounds - CARDIOVASCULAR Cardiovascular: normal peripheral pulses, regular rate, rhythm - GASTROINTESTINAL (ABDOMEN) Abdominal Exam: non tender, soft - MUSCULOSKELETAL Back Exam: normal inspection Extremity: other (left AKA with deeply tacking wound which appears to be a dehiscense of incision with retained deeply seated luisito, Gross voluminous purulent drainage from wound and apparent visible bone. skin warm and well perfused. partial ampuation of right foot.) - SKIN Integumentary: normal color, normal turgor, warm/dry - NEUROLOGIC Neurologic: grossly normal, no motor/sensory deficits - PSYCHIATRIC Psych/Mental Status: normal mood/affect, normal thought content, normal thought process, oriented x 3 Progress - PLAN OF CARE/RESULTS Progress/Plan/Lab Results: Vital Signs - 8 hr 06/10/18 03:52 Temperature 97.2 F L Pulse Rate 112 H Respiratory Rate 18 Blood Pressure 159/77 O2 Sat by Pulse Oximetry 100 Orders Category Date Time Status IV Insertion ORDERED Care 06/10/18 04:[address] EXT LOWER LEFT W/CON [CT] Stat Exams 06/10/18 04:06 Ordered ABSCESS CULTURE INC GRAM STAIN [RM] Stat Lab 06/10/18 04:02 Uncollected BASIC METABOLIC PANEL [CHEM] Stat Lab 06/10/18 04:02 Uncollected BLOOD CULTURE [BLDCUL] Stat Lab 06/10/18 04:02 Uncollected C REACTIVE PROT QUANT [CHEM] Stat Lab 06/10/18 04:02 Uncollected CBC WITH DIFF [HEME] Stat Lab 06/10/18 04:02 Uncollected SED RATE [HEME] Stat Lab 06/10/18 04:02 Uncollected WOUND CULTURE INC GRAM STAIN [RM] Stat Lab 06/10/18 04:02 Uncollected 0.9% Sodium Chloride Inj [Ns] 1,000 ml Med 06/10/18 04:02 Active IV 999 mls/hr Piperacillin/Tazobactam [Zosyn] 4.5 gm Med 06/10/18 04:02 Active 0.9% Sodium Chloride Inj [Ns] 100 ml IV NOW Vancomycin 1 gm/Ns Med 06/10/18 04:02 Active 1 gm in 250 ml IV NOW grossly infected AKA stub with likely abscess and appears to track to bone. Will further evaluate for degree and extent of abscess and will empirically treat with vanco and zosyn. Result Diagrams: 06/10/18 04:15 06/10/18 04:15 - REASSESSMENT Reassessment #1 Status: unchanged (Continued drainage from wound. Discussed case with Dr. Kelly, general surgeon water conservationist, who will come to see pt in the ED.) Reassessment #2 Status: unchanged (evaluated by Dr. Kelly in the ED and would like pt admitted to the hospitalist and plans and debriedment of hsi stub. Discussed case with Dr. Hoyt, hospitalist, who will see and admit pt.) - CT/MRI 1 CT Study: Lower Ext Impression: Abnormal (Per radiologist read: "multifocal gas and fluid collection within the AKA stump involving the distal quadriceps and vastus musculature concerning for abscess, patent fem-fem bypass") Departure - Departure Date of Disposition Decision: 06/10/18 Time of Disposition Decision: 06:42 DIAGNOSIS: Thigh abscess, Wound dehiscence Disposition: ADMITTED INPATIENT 09 Certified Medical Emergency: Emergent Condition: Fair Referrals and Follow-Ups: Jose David Kapoor Jr, MD [Primary Care Provider] - - Critical Care Note This patient required my direct & personal management of CC.: No Attestation - Physician/ JACOB Attestation The physician spent face to face time with patient:: Yes Advanced Practice Provider documentation review:: Supervising physician onsite and consulted in the evaluation and care of this patient. The physician did have a face to face encounter with the patient.
[2018-06-10 04:29] LABS: BASO# 0.03 X1000 (0.0-0.2); BASO% 0.2 % (0.0-0.8); HEMATOCRIT 37.3 % (42.0-52.0); HEMOGLOBIN 12.5 g/dL (14.0-18.0); IMM GRAN# 0.16 X1000 (0.0-0.04); IMM GRAN% 1.2 % (0.0-0.5); LYMPH# 3.14 X1000 (1.2-3.4); LYMPH% 23.2 % (20.5-51.1); MCH 27.9 PG (27-31); MCHC 33.5 g/dL (33-37); MCV 83.3 FL (81-99); MONO# 1.07 X1000 (0.11-0.59); MONO% 7.9 % (1.7-9.3); MPV 9.4 FL (7.4-10.4); NEUT# 9.15 X1000 (1.4-6.5); NEUT% 67.5 % (42.2-75.2); PLT 443 X1000 (130-400); RBC 4.48 XMIL (4.7-6.1); RDW 14.4 % (11.5-14.5); WBC 13.55 X1000 (4.8-10.8)
[2018-06-10 04:53] LABS: AGAP 15; BUN 11 mg/dL (8-22); CALCIUM 9.9 mg/dL (8.8-10.2); CHLORIDE 99 mmol/L (98-107); COSMO 277; CREATININE 0.7 mg/dL (0.7-1.2); ESTIMATED GFR > 60; GLUCOSE 136 mg/dL (70-104); POTASSIUM 3.9 mmol/L (3.5-5.1); SODIUM 138 mmol/L (136-145); TCO2 24 mmol/L (25-35)
[2018-06-10 05:13] LABS: C REACTIVE PROT QUANT 120.08 mg/L (0.00-5.00)
[2018-06-10 05:38] LABS: SED RATE 85 mm/hr (0-15)
[2018-06-10] MEDS ORDERED: TYLENOL PO PRN (08:34)
[2018-06-10] MEDS ORDERED: ZOFRAN IV PRN (08:34)
[2018-06-10] MEDS ORDERED: MOBIC PO PRN (08:46)
[2018-06-10] MEDS ORDERED: ATARAX PO PRN (08:46)
[2018-06-10] MEDS ORDERED: CALAMINE LOTION TOP PRN (08:46)
[2018-06-10] MEDS ORDERED: VANCOMYCIN IV PER PHARMACY MISC SCH (09:00)
[2018-06-10 09:23] LABS: HEMOGLOBIN A1C 6.3 % (4.8-6.0)
--- NOTE | 2018-06-10 10:03 | Diag Imaging Result Doc PS360 ---
EXAM: CT EXT LOWER LEFT W/CON INDICATION: recent AKA with possible abscess TECHNIQUE: This exam was performed using automated exposure control, adjustment of mA or kV according to patient size, and/or use of iterative reconstruction technique. COMPARISON: CT abdomen and pelvis with lower extremity runoff dated 05/09/2018 FINDINGS: During the interval, there has been an ofbcs-yio-lzna amputation on the left as well as femorofemoral bypass grafting. The bypass graft is patent and there is expected mild edema in the groin bilaterally. Skin luisito are also noted in the groin. There are skin luisito at the stump of the recently amputated left leg. There is subcutaneous edema as would be expected from the recent surgery. However, there is also an ill-defined fluid collection containing gas around the femoral stump. It measures 5.1 x 4.8 x 7.4 cm. It is suspicious for postsurgical abscess. It extends slightly into the quadriceps musculature. There is also extension into the biceps femoris. There are a few heterotopic ossifications and expected bony fragments at the femoral stump. There is no erosive change to indicate osteomyelitis by CT at this time. IMPRESSION: 1.Interval left wuerj-ezc-vdwx amputation with a prominent ill-defined loculated fluid collection containing gas droplets around the femoral stump that is suspicious for abscess. Please correlate clinically. 2.Interval femorofemoral bypass grafting. The graft is patent. Electronically signed by Jonathan Spann 06/10/2018 10:01 AM
[2018-06-10] MEDS: ZOSYN 4.5 GM in NS 100 ML IV SCH ×3 (10:49→23:25)
[2018-06-10] MEDS: NS 1,000 ML IV SCH (10:49)
[2018-06-10] MEDS: ASPIRIN PO SCH (10:50)
[2018-06-10] MEDS: PEPCID PO SCH (10:50)
--- NOTE | 2018-06-10 10:50 | Diag Imaging Result Doc PS360 ---
EXAM: CHEST-2 VIEWS INDICATION: r/o pna; leukocytosis TECHNIQUE: 2 views COMPARISON: 05/15/2018 FINDINGS: The lungs are grossly clear. There is no discrete pleural fluid collection or pneumothorax. The cardiomediastinal silhouette and central vasculature are grossly unremarkable. IMPRESSION: No evidence of acute pathology by plain radiograph. Electronically signed by Jonathan Spann 06/10/2018 10:48 AM
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
[2018-06-10] MEDS: VANCOMYCIN 1,750 MG in NS 250 ML IV SCH (14:11)
[2018-06-10] MEDS: HUMULIN R SUBQ SCH ×3 (14:11→21:03)
[2018-06-10] MEDS: NON-FORMULARY MED PO SCH ×2 (14:11→18:29)
[2018-06-10] MEDS ORDERED: NON-FORMULARY MED PO SCH (16:00)
--- NOTE | 2018-06-10 18:28 | HISTORY AND PHYSICAL ---
ADDENDUM: Presented to the emergency department today because of drainage from the left stump incision. I have seen Mr. Martinez face to face and I have examined him. I have also reviewed all his lab data as well as the CT scan of the lower extremity and a chest x-ray that he did this morning. I agree Mr. Martinez has an infected right AKA stump with an abscess formation, the culture is gram negative cocci. Patient is currently on broad-spectrum antibiotics and surgery has been consulted. Diabetes mellitus type 2. For now we are going to control the diabetes during the hospital with long-acting and sliding scale. Severe peripheral vascular disease noted. Previous right transmetatarsal amputation. Please refer to the details of the history and physical and the plan that has been dictated by the nurse practitioner in the chart. cc: London Arreaga MD
[2018-06-10 18:49] LABS: URINE SOURCE CLEAN CATCH
[2018-06-10 18:51] LABS: BILIRUBIN URINE NEGATIVE (NEGATIVE); BLOOD URINE NEGATIVE (NEGATIVE); COLOR YELLOW; GLUCOSE URINE >1000 mg/dL (NEGATIVE); KETONE URINE NEGATIVE (NEGATIVE); LEUKOCYTES URINE NEGATIVE (NEGATIVE); NITRITE URINE NEGATIVE (NEGATIVE); PROTEIN URINE TRACE mg/dL (NEGATIVE); SP GRAVITY URINE 1.043; TURBIDITY URINE CLEAR (CLEAR); UROBILINOGEN URINE 6 mg/dL (NORMAL)
[2018-06-10 18:54] LABS: UR EPITHELIAL CELLS <10 /HPF (<10); URINE BACTERIA NEGATIVE /HPF; URINE RBC <10 /HPF (<10); URINE WBC <10 /HPF (<10)
[2018-06-10 19:01] LABS: URINE CRYSTALS NONE SEEN
[2018-06-10] MEDS: NORCO-10 PO PRN (23:24)
[2018-06-11] MEDS: VANCOMYCIN 1,750 MG in NS 250 ML IV SCH ×2 (01:14→13:11)
[2018-06-11] MEDS: NS 1,000 ML IV SCH ×2 (04:35→11:24)
[2018-06-11] MEDS: ZOSYN 4.5 GM in NS 100 ML IV SCH ×3 (05:42→17:19)
[2018-06-11] MEDS: LOVENOX SUBQ SCH (05:43)
[2018-06-11] MEDS: NORCO-10 PO PRN (05:43)
[2018-06-11 06:30] LABS: BASO# 0.03 X1000 (0.0-0.2); BASO% 0.3 % (0.0-0.8); HEMATOCRIT 33.3 % (42.0-52.0); HEMOGLOBIN 10.8 g/dL (14.0-18.0); IMM GRAN% 1.1 % (0.0-0.5); LYMPH# 2.68 X1000 (1.2-3.4); LYMPH% 28.7 % (20.5-51.1); MCH 27.3 PG (27-31); MCHC 32.4 g/dL (33-37); MCV 84.1 FL (81-99); MONO# 0.61 X1000 (0.11-0.59); MONO% 6.5 % (1.7-9.3); MPV 9.3 FL (7.4-10.4); NEUT# 5.92 X1000 (1.4-6.5); NEUT% 63.4 % (42.2-75.2); PLT 404 X1000 (130-400); RBC 3.96 XMIL (4.7-6.1); RDW 14.3 % (11.5-14.5); WBC 9.34 X1000 (4.8-10.8)
[2018-06-11 06:35] LABS: INR 1.1; PROTIME 15.1 Seconds (11.0-16.0)
[2018-06-11 06:36] LABS: PTT 41.5 Seconds (22.3-41.8)
[2018-06-11] MEDS: HUMULIN R SUBQ SCH ×4 (06:52→22:00)
[2018-06-11 06:55] LABS: AGAP 13; ALB/GLOB RATIO 0.9; ALBUMIN 3.2 g/dL (3.5-5.0); ALKALINE PHOSPHATASE 74 U/L (32-122); BUN 9 mg/dL (8-22); CALCIUM 8.6 mg/dL (8.8-10.2); CHLORIDE 107 mmol/L (98-107); COSMO 282; CREATININE 0.8 mg/dL (0.7-1.2); ESTIMATED GFR > 60; GLUCOSE 105 mg/dL (70-104); GOT 9 U/L (10-34); GPT 11 U/L (10-44); POTASSIUM 3.7 mmol/L (3.5-5.1); SODIUM 142 mmol/L (136-145); TCO2 22 mmol/L (25-35); TOTAL BILIRUBIN 0.39 mg/dL (0.20-1.00); TOTAL PROTEIN 6.8 g/dL (6.3-8.3)
[2018-06-11] MEDS: PEPCID PO SCH (09:42)
[2018-06-11] MEDS: ASPIRIN PO SCH (09:42)
[2018-06-11] MEDS: LANTUS INSULIN SUBQ SCH (09:42)
--- NOTE | 2018-06-11 12:49 | PROGRESS NOTE ---
DATE: 06/11/2018 SUBJECTIVE: This morning, Mr. Martinez refers to be doing fairly okay. No new complaints. OBJECTIVE: Vital Signs: Blood pressure is 136/74, pulse 90, respirations are 20, temperature is 98.9 degrees. General Examination: Mr. Martinez is a 53-year-old, gentleman. He is in bed. He is not in any cardiopulmonary distress. HEENT: Mucosa is pink and moist. Anicteric. Acyanotic. Neck: Supple. Chest: Good air entry bilaterally. No crepitations. No rhonchi. Cardiovascular: Regular rate and rhythm. Abdomen: Soft, nontender. Bowel sounds present. Extremities: There is a left AKA which is currently wrapped in a sterile dressing. I saw the wound yesterday. Most of the suture line has dehisced and there was necrotic tissue at the stump associated with some foul smell secretions. The right lower extremity has an old transmetatarsal amputation which looks clean. Lab Work: Has also been reviewed. WBC is down to 9.34, hemoglobin is 10.8, platelet count of 408,000. Chemistry is also reviewed and is completely unremarkable. So far, the blood cultures are still pending. The left leg wound culture is showing gram-positive cocci. This has been changed since yesterday because yesterday, it was a gram-negative cocci. Current Medications: Have also been reviewed. Antimicrobials include Zosyn 4.5 g every 6 hours and vancomycin per pharmacy protocol. Today is day 1 on those antimicrobials. ASSESSMENT: 1. Infected left above-knee amputation stump with abscess formation. Culture is growing gram- positive cocci, presumably staphylococcus. However, we will wait for the identification and sensitivity. The patient is currently on broad-spectrum intravenous antibiotics. This will be titrated accordingly once the culture report is known. 2. Diabetes mellitus type 2. A1c on presentation was 6.3, which is very well-controlled. However, during the hospital course, we will utilize insulin for better glycemic control. 3. Severe peripheral vascular disease. 4. Previous right transmetatarsal amputation. 5. Normocytic anemia. We will continue to follow the hemoglobin and hematocrit. PLAN: In general, Mr. Martinez is doing a lot better. He is stable. Still has some exudation from the left AKA stump and there is some smell to it. It is currently wrapped up. Culture showing gram-positive cocci. The patient is on broad-spectrum antimicrobial coverage. Will be pending the ID and sensitivity of the gram-positive cocci and then go from there. The patient is also pending surgery evaluation tomorrow and see if they would want to do any intervention. cc: London Arreaga MD
--- NOTE | 2018-06-11 15:57 | GENERAL SURGERY PROGRESS NOTE ---
DATE: 06/11/2018 SUBJECTIVE: He has no complaints. No fevers documented. No tachycardia. OBJECTIVE: Vital signs: Blood pressure 129/75, oxygen saturation is 99%. General: He is alert. Extremities: His left BKA wound has necrosis here. There is no obvious cellulitis. No hilario purulence but there is quite a bit of necrotic muscle and soft tissue. LABORATORY: White count 9, hematocrit 33. Creatinine 0.8, glucose 105/147, albumin is 3.2. ASSESSMENT AND PLAN: This is a 63-year-old gentleman, patient Dr. ePrsaud's with a necrotic wound to his left above-knee amputation. He needs debridement of this. We will continue local wound care. Dr. Persaud will be back tomorrow. He seems to have maintained flow. cc: Alma Delia Reyes MD
[2018-06-12] MEDS: NORCO-10 PO PRN ×3 (00:13→19:45)
[2018-06-12] MEDS: ZOSYN 4.5 GM in NS 100 ML IV SCH ×5 (00:22→23:56)
[2018-06-12] MEDS: VANCOMYCIN 1,750 MG in NS 250 ML IV SCH (01:32)
[2018-06-12] MEDS: LOVENOX SUBQ SCH (07:08)
[2018-06-12] MEDS: NS 1,000 ML IV SCH ×2 (07:08→09:53)
[2018-06-12] MEDS: HUMULIN R SUBQ SCH ×4 (07:09→22:46)
[2018-06-12] MEDS: PEPCID PO SCH (09:37)
[2018-06-12] MEDS: ASPIRIN PO SCH (09:37)
[2018-06-12] MEDS: LANTUS INSULIN SUBQ SCH (10:02)
--- NOTE | 2018-06-12 11:48 | PROGRESS NOTE ---
DATE: 06/12/2018 SUBJECTIVE: Patient reports feeling fine. No new complaints. OBJECTIVE: Vital Signs: Temperature 98.1 degrees, heart rate 95, respiratory rate 20, blood pressure 139/73, O2 saturation 94% on room air. General Examination: The is a 53-year-old, male, lying in bed, in no acute distress. HEENT: Head is normocephalic and atraumatic. Neck: No JVD noted. No carotid bruits. No lymphadenopathy. No thyromegaly. Cardiovascular Examination: S1 and S2 heard. No murmurs, gallops, or rubs. Regular rate and rhythm. Respiratory Examination: Clear bilaterally to auscultation. No work of breathing or using accessory muscles. Abdomen: Soft to palpation. Bowel sounds present. No organomegaly. Extremities: There is a left wfdft-frg-jpbh amputation. Actually, the dressing has been removed and we see a surgical wound that has some dehiscence and also necrotic, and also purulent material coming out from the stump with foul-smelling secretions. Neurological Examination: The patient is alert and oriented x3. Laboratory Data: There are no labs from today. ASSESSMENT AND PLAN: 1. Infected left klxwr-wqw-llqh amputation stump with abscess formation. His primary surgeon, Dr. Kelly, has been consulted. We will follow recommendations. At this point, we will continue with vancomycin and Zosyn. 2. Diabetes mellitus type 2. Hemoglobin A1c 6.2. We will continue with same management. 3. Severe peripheral vascular disease. Aware. 4. Previous right transmetatarsal amputation. Aware. 5. Normocytic anemia. We will continue to check CBC daily. cc: Seth Daniels MD
--- NOTE | 2018-06-12 17:43 | PROGRESS NOTE ---
DATE: 06/12/2018 Mr. Martinez is a 53-year-old black male who is status post left wwzlb-eeo-glkp amputation several weeks ago. He went to rehab here locally. He states that he fell on his left dbzjn-aww-aowd amputation stump, has now got evidence of infection and necrosis clinically and will need to be debrided. He has a femoral-femoral arterial bypass graft, which appears to be patent on CT scan. I discussed the procedure in detail with him this evening, and he wants to proceed. cc: Esperanza Persaud MD
[2018-06-13] MEDS: NS 1,000 ML IV SCH ×2 (00:01→18:20)
[2018-06-13] MEDS: ZOSYN 4.5 GM in NS 100 ML IV SCH (05:11)
[2018-06-13] MEDS: LOVENOX SUBQ SCH (05:11)
[2018-06-13] MEDS ORDERED: VANCOMYCIN 1,750 MG in NS 250 ML IV SCH (06:00)
[2018-06-13] MEDS: NORCO-10 PO PRN (06:39)
[2018-06-13] MEDS: HUMULIN R SUBQ SCH ×4 (06:41→21:43)
[2018-06-13] MEDS ORDERED: KEFZOL 2 GM/D5W 2 GM/50 ML IVPB IV SCH (09:00)
[2018-06-13] MEDS: LANTUS INSULIN SUBQ SCH (11:15)
--- NOTE | 2018-06-13 11:29 | PROGRESS NOTE ---
DATE: 06/13/2018 SUBJECTIVE: This morning, Mr. Martinez referred to be doing fairly okay. He denied any new complaints. The right stump has been dressed. OBJECTIVE: Vital Signs: Blood pressure is 145/77, pulse is 81, respirations are 17, temperature is 98.0 degrees. General Examination: Mr. Martinez is a 53-year-old, gentleman. He is in bed, in no distress. HEENT: Mucosa is pink and moist. Anicteric. Acyanotic. Neck: Supple. Chest: Clear to auscultation. No crepitations. No rhonchi. Cardiovascular: Regular rate and rhythm. No murmurs, no rubs, no gallops. GI: Abdomen is soft, nontender. Bowel sounds present. Extremities: There is a left AKA which is wrapped in a sterile dressing. The right has an old transmetatarsal amputation which is stable. REGISTRATION OFFICER: The patient is awake and alert. No focal deficit. Laboratory Data: None for today. Patient has very good glycemic control. Microbiology Data: Shows the left leg culture is positive for MSSA. ASSESSMENT: 1. Methicillin-sensitive Staphylococcus aureus infected left above knee amputation stump with abscess formation. The patient was on broad-spectrum intravenous antibiotics. We are going to switch this to cefazolin this morning and narrow down the antibiotic coverage. 2. Diabetes mellitus type 2. Presenting A1c is 6.3. We are going to continue with the insulin coverage. 3. Severe peripheral vascular disease noted. The patient is on aspirin. We will add statin to his medications. 4. Previous right transmetatarsal amputation noted. 5. Normocytic anemia. Hemoglobin and hematocrit are stable. PLAN: In general, I think Mr. Martinez is fairly stable. The culture reveals MSSA infection of the left stump. Antibiotics have been changed and we will be pending further recommendations from surgery as to when intervention will be done. cc: London Arreaga MD
[2018-06-13] MEDS ORDERED: XYLOCAINE-MPF 2% ONE (14:25)
[2018-06-13] MEDS ORDERED: DIPRIVAN 1% ONE (14:25)
[2018-06-13] MEDS: ASPIRIN PO SCH (14:28)
[2018-06-13] MEDS: PEPCID PO SCH (14:28)
[2018-06-13] MEDS ORDERED: FENTANYL ONE ×2 (15:20→16:18)
[2018-06-13] MEDS ORDERED: DILAUDID ONE (15:26)
[2018-06-13] MEDS ORDERED: ROBINUL ONE (15:32)
[2018-06-13] MEDS ORDERED: ALBUMIN 25% ONE (16:05)
[2018-06-13 16:50] LABS: HEMATOCRIT 27.1 % (42.0-52.0); HEMOGLOBIN 8.6 g/dL (14.0-18.0)
[2018-06-13] MEDS ORDERED: NORCO-10 ONE (16:54)
[2018-06-13] MEDS ORDERED: LR 1,000 ML IV SCH (17:00)
--- NOTE | 2018-06-13 17:01 | OPERATIVE NOTE ---
PROCEDURE DATE: 06/13/2018 PREOPERATIVE DIAGNOSIS: Dehiscence and infection of left ctaka-yzr-twjn amputation stump. POSTOPERATIVE DIAGNOSIS: Dehiscence and infection of left mxvhp-fqs-cmqd amputation stump. PRINCIPAL PROCEDURE: Revision of left xcdii-zer-clfs amputation stump. SURGEON: Esperanza Persaud MD. ANESTHESIA: General. ESTIMATED BLOOD LOSS: 600 mL. DRAINS: None. INDICATIONS: Shawn Martinez is a 53-year-old black male who had to undergo a left gawto-ooa-wulz amputation because of an ischemic left leg. He also underwent angioplasty of his right iliac artery and a femoral-femoral arterial bypass graft because he needed blood to heal his amputation site. FINDINGS: He had dehiscence and infection involving his left iwczo-rsw-hzef amputation stump especially medially. It did involve the femur. We just amputated his leg higher to revise this left oclmx-zvd-nsmc amputation stump. We took more femur. He had plenty of blood supply for healthy muscle in the area and tissues. DESCRIPTION OF PROCEDURE: The patient was brought to the operating room, placed supine, received general anesthesia, was intubated. He had an open wound involving his left nxwpi-gbj-jvsq amputation stump. This area was prepped and draped in a sterile field. He was already on IV antibiotics. I marked an incision higher about midthigh which would involve fresh tissue. This was a fish[place] incision. I marked it with a skin marker and then made the incision with a 10 blade scalpel. The incision was carried down through the skin and subcutaneous tissue and there was plenty of bleeding. We had to use cautery to control this bleeding circumferentially. I cut through the muscle to the femur, and then I cut about 3 to 4 inches of femur more proximally using a Gigli saw and a power saw. I cut the posterior muscles with an amputation knife. I used Nenita clamps and 0 silk ties and 0 stick ties to control bleeding. Because of the inflammation, there was plenty of bleeding and we lost about 600 mL of blood. Once we had controlled bleeding, I used an orthopedic christmas bell ringer and 3 L of fluid to thoroughly irrigate our wound. We changed gloves and instruments and we closed this wound primarily. We closed the deep muscle over the new cut end of the femur with interrupted 0 Vicryl stitches. I closed the superficial fascia anteriorly to posteriorly with interrupted simple 0 Vicryl stitches and then I closed the skin with a skin clip contact lens lathe operator. This amputation was now about midthigh. I felt we had plenty of blood supply for any healing. We removed all the evidence of infected bone or muscle and despite working in the contaminated field, we thoroughly irrigated the wound with orthopedic christmas bell ringer and decided to close it primarily and continue IV antibiotics. His family was not present at the time of surgery. He will go the recovery room and then return to the floor. cc: Esperanza Persaud MD
[2018-06-13] MEDS: SANTYL OINT TOP SCH (17:31)
[2018-06-13] MEDS: ZOSYN 3.375 GM in NS 50 ML IV SCH ×2 (17:43→21:43)
[2018-06-13] MEDS: MORPHINE IV PRN ×2 (18:50→20:33)
[2018-06-14] MEDS: ZOSYN 3.375 GM in NS 50 ML IV SCH ×5 (00:40→22:22)
[2018-06-14] MEDS: MORPHINE IV PRN ×3 (04:59→19:59)
[2018-06-14] MEDS: HUMULIN R SUBQ SCH ×4 (06:53→21:48)
[2018-06-14 06:54] LABS: BASO# 0.03 X1000 (0.0-0.2); BASO% 0.2 % (0.0-0.8); HEMATOCRIT 22.9 % (42.0-52.0); HEMOGLOBIN 7.2 g/dL (14.0-18.0); IMM GRAN% 0.8 % (0.0-0.5); LYMPH# 1.42 X1000 (1.2-3.4); MCHC 31.4 g/dL (33-37); MCV 85.8 FL (81-99); MONO# 0.59 X1000 (0.11-0.59); MONO% 4.6 % (1.7-9.3); MPV 9.2 FL (7.4-10.4); NEUT# 10.74 X1000 (1.4-6.5); NEUT% 83.4 % (42.2-75.2); PLT 405 X1000 (130-400); RBC 2.67 XMIL (4.7-6.1); WBC 12.88 X1000 (4.8-10.8)
[2018-06-14 07:22] LABS: AGAP 18; ALBUMIN 2.9 g/dL (3.5-5.0); ALKALINE PHOSPHATASE 52 U/L (32-122); BUN 8 mg/dL (8-22); CHLORIDE 110 mmol/L (98-107); COSMO 285; CREATININE 1.2 mg/dL (0.7-1.2); ESTIMATED GFR > 60; GLUCOSE 104 mg/dL (70-104); GOT 9 U/L (10-34); GPT < 5 U/L (10-44); POTASSIUM 3.6 mmol/L (3.5-5.1); SODIUM 144 mmol/L (136-145); TCO2 16 mmol/L (25-35); TOTAL BILIRUBIN 0.27 mg/dL (0.20-1.00); TOTAL PROTEIN 5.9 g/dL (6.3-8.3)
[2018-06-14] MEDS: LANTUS INSULIN SUBQ SCH (10:32)
[2018-06-14] MEDS: NORCO-10 PO PRN ×3 (10:32→22:41)
[2018-06-14] MEDS: PEPCID PO SCH (10:33)
[2018-06-14] MEDS: NS 1,000 ML IV SCH ×2 (10:37→20:01)
--- NOTE | 2018-06-14 12:59 | PROGRESS NOTE ---
DATE: 06/14/2018 SUBJECTIVE: This morning, Mr. Martinez referred to be doing fairly okay. His dad was at the bedside at the time of the encounter. He denies any complaints. OBJECTIVE: Vitals: Blood pressure is 145/72, pulse 104, respirations 20, temperature 98.7 degrees. On general exam, Mr. Martinez is a 53-year-old gentleman. He was in bed. Not seemingly distressed. Mucosa is pink and moist. Anicteric. Acyanotic. Neck is supple. Chest: Good air entry bilateral. There were no crepitations, no rhonchi. Cardiovascular: Regular rate and rhythm, slightly tachycardic, but no murmurs, no rubs, no gallops. Gastrointestinal: Abdomen is soft, nontender. Bowel sounds present. Extremities: The right lower extremity has an old transmetatarsal amputation. The left has an AKA, which is wrapped in sterile dressing. LABORATORY DATA: Hemoglobin is down to 7.2. Chemistry is also reviewed and is unremarkable. MEDICATION: Patient's current medications have all been reviewed. ASSESSMENT: 1. Methicillin-sensitive Staphylococcus aureus infected wound of the left above-knee amputation stump. The patient is currently on antibiotics. He was taken to OR yesterday. Revision of the left above stump was done. This was done by Dr. Persaud. 2. Diabetes mellitus, type 2. Presenting A1c is 6.3. We will continue with the insulin regimen. 3. Severe peripheral vascular disease. We will continue with aspirin and statin. 4. Previous right transmetatarsal amputation noted. 5. Normocytic anemia, which has gotten worse due to blood loss during surgery. The patient has been grouped and crossmatched for 2 units of PRBC transfusion today. cc: London Arreaga MD
[2018-06-14] MEDS: SANTYL OINT TOP SCH (15:56)
--- NOTE | 2018-06-14 20:18 | PROGRESS NOTE ---
DATE: 06/14/2018 SUBJECTIVE: Mr. Martinez is postoperative day 1 from revision of his left moruw-fgg-abgn amputation stump. What I did is just amputate the stump higher on his thigh and I closed the wound primarily. He needs to be on IV Zosyn prophylactically. He did have good blood supply. We lost a significant amount of blood. He is receiving some blood right now because his hematocrit was 23%. OBJECTIVE: His dressing involving his left xczbp-unl-aryx amputation is dry and intact, so there is no evidence of bleeding through our wound. He is awake and cooperative. He has a palpable pulse in his femoral-femoral arterial bypass graft. PLAN: We will restart him on his aspirin beginning tomorrow. cc: Esperanza Persaud MD
[2018-06-15] MEDS: ZOSYN 3.375 GM in NS 50 ML IV SCH ×5 (03:46→23:27)
[2018-06-15] MEDS: HUMULIN R SUBQ SCH ×4 (06:34→22:54)
[2018-06-15] MEDS: NORCO-10 PO PRN ×3 (06:46→21:26)
[2018-06-15 07:04] LABS: BASO# 0.03 X1000 (0.0-0.2); BASO% 0.2 % (0.0-0.8); HEMATOCRIT 29.7 % (42.0-52.0); HEMOGLOBIN 9.8 g/dL (14.0-18.0); IMM GRAN# 0.07 X1000 (0.0-0.04); IMM GRAN% 0.5 % (0.0-0.5); LYMPH# 1.78 X1000 (1.2-3.4); LYMPH% 13.3 % (20.5-51.1); MCH 27.7 PG (27-31); MCV 83.9 FL (81-99); MONO# 0.76 X1000 (0.11-0.59); MONO% 5.7 % (1.7-9.3); MPV 9.2 FL (7.4-10.4); NEUT# 10.78 X1000 (1.4-6.5); NEUT% 80.3 % (42.2-75.2); PLT 372 X1000 (130-400); RBC 3.54 XMIL (4.7-6.1); RDW 14.9 % (11.5-14.5); WBC 13.42 X1000 (4.8-10.8)
[2018-06-15 07:59] LABS: AGAP 9; BUN 6 mg/dL (8-22); CALCIUM 8.3 mg/dL (8.8-10.2); CHLORIDE 113 mmol/L (98-107); COSMO 285; ESTIMATED GFR > 60; GLUCOSE 113 mg/dL (70-104); POTASSIUM 3.6 mmol/L (3.5-5.1); SODIUM 144 mmol/L (136-145); TCO2 22 mmol/L (25-35)
--- NOTE | 2018-06-15 08:00 | PROGRESS NOTE ---
DATE: 06/15/2018 Mr. Shawn Martinez is now postop day 2 from a revision of his left above the knee amputation stump. We closed this wound primarily. I have kept him on IV Zosyn in hopes of preventing a wound infection. He has required some blood postoperatively. He was receiving blood last night, and his hematocrit went from 23 to 30 this morning. Clinically, he feels well. His left above- the-knee amputation stump is still dressed. There is no bleeding on his wound dressing. I think he does have a palpable pulse in his femoral-femoral arterial bypass graft. I think we ought to restart him on his aspirin. While he is in the hospital, we should get physical therapy to see him, and if possible a trapeze bar over the bed. cc: Esperanza Persaud MD
--- NOTE | 2018-06-15 10:41 | PROGRESS NOTE ---
DATE: 06/15/2018 SUBJECTIVE: This morning, Mr. Martinez refers to be doing fairly the same. No major complaints. OBJECTIVE: Vital Signs: Blood pressure is 152/78, pulse is 89, respirations are 13, temperature is 97.4 degrees. General Examination: Mr. Martinez is a 53-year-old, gentleman. He is in bed. No distress. HEENT: Mucosa is pink and moist. Anicteric. Acyanotic. Neck: Supple. Chest: Good air entry bilaterally. No crepitations. No rhonchi. Cardiovascular: Regular rate and rhythm. No murmurs, no rubs, no gallops. GI: Abdomen is soft, nontender. Bowel sounds present. Extremities: The right lower extremity has an old transmetatarsal amputation. Stump looks clean. The left has a sterile dressing over the new stump. ADVICE CLERK: The patient is awake, alert, and oriented. Laboratory Data: So far, blood cultures have been 48 hours negative. WBC is 13.42, hemoglobin is up to 9.8, and platelet count is 372,000. Chemistry is also reviewed and unremarkable. Glucose is 113. ASSESSMENT: 1. 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 Incision and drainage, and a closure of the stump has been done by surgery. Today is day 2 postoperatively. 2. Diabetes mellitus type 2 with a presenting A1c of 6.3. Glucose levels have been fairly stabilized with insulin regimen. 3. Severe peripheral vascular disease. Patient is on aspirin and statin. 4. Previous right transmetatarsal amputation, noted. 5. Anemia secondary to blood loss during surgery. The patient is status post 2 units of packed red blood cell transfusion. Hemoglobin and hematocrit this morning have improved to 9.8 from 7.2 yesterday. PLAN: In general, we are going to continue with the current antibiotic coverage. The patient is also on aspirin and statin for peripheral vascular disease. We will be following further recommendations from surgery as to when they think the patient can be discharged from there end. I think the patient can be switched to oral antibiotics once stable for discharge. We will consult social work to evaluate for possible rehab placement. cc: London Arreaga MD
[2018-06-15] MEDS: SANTYL OINT TOP SCH ×2 (11:00→13:16)
[2018-06-15] MEDS: MORPHINE IV PRN ×2 (11:00→16:56)
[2018-06-15] MEDS: ASPIRIN PO SCH (11:01)
[2018-06-15] MEDS: LANTUS INSULIN SUBQ SCH (11:02)
[2018-06-15] MEDS: CRESTOR PO SCH (11:02)
[2018-06-15] MEDS: PEPCID PO SCH (11:03)
[2018-06-16] MEDS: ZOSYN 3.375 GM in NS 50 ML IV SCH ×4 (03:50→17:25)
[2018-06-16] MEDS: NORCO-10 PO PRN (03:54)
[2018-06-16] MEDS: HUMULIN R SUBQ SCH ×3 (06:48→17:23)
[2018-06-16] MEDS: ASPIRIN PO SCH (09:21)
[2018-06-16] MEDS: LANTUS INSULIN SUBQ SCH (09:22)
[2018-06-16] MEDS: CRESTOR PO SCH (09:22)
[2018-06-16] MEDS: PEPCID PO SCH (09:23)
[2018-06-16] MEDS: SANTYL OINT TOP SCH (09:23)
[2018-06-16] MEDS: MORPHINE IV PRN (09:24)
--- NOTE | 2018-06-16 14:06 | DISCHARGE SUMMARY ---
ADMISSION DATE: 06/10/2018 DISCHARGE DATE: 06/16/2018 DISPOSITION: [facility]. FOLLOW-UP: 1. Dr. Jose David Kapoor. 2. Dr. Kelly. CONSULTATION DURING THIS ADMISSION: Surgery was consulted. Patient was seen by Dr. Persaud. INVASIVE PROCEDURES DONE DURING THIS ADMISSION: Revision of left above knee amputation stump. DIAGNOSES AT THE TIME OF ADMISSION: 1. Left lower extremity [id number] amputation stump infection. 2. Diabetes mellitus. 3. Peripheral vascular disease. DIAGNOSES AT THE TIME OF DISCHARGE: 1. Methicillin-sensitive Staphylococcus aureus wound infection of the left [id number]-[id number] amputation with wound dehiscence. The patient is status post revision with thorough debridement of necrotic tissue and primary closure. 2. Diabetes mellitus type 2 with a presenting A1c of 6.3. Patient has been started back on his oral hypoglycemic agents. 3. Severe peripheral vascular disease. Patient is on aspirin and statin. 4. Previous right transmetatarsal amputation. 5. Anemia secondary to acute blood loss. The patient was given 2 PRBC transfusion and hemoglobin and hematocrit stabilized. DISCHARGE MEDICATIONS: 1. Famotidine 20 mg daily. 2. Dapagliflozin 5 mg p.o. daily. 3. Metformin 500 p.o. daily. 4. Aspirin 325 p.o. daily. 5. Januvia 100 mg p.o. daily. 6. Moran. 7. Crestor 20 mg p.o. daily. 8. Augmentin 875 p.o. b.i.d. PRESENTING COMPLAINT: Drainage from the left stump. HISTORY OF PRESENTING COMPLAINT: Mr. Martinez is a 53 years gentleman who is known to have diabetes mellitus, peripheral vascular disease who had an above-knee amputation on 05/09/2018, went to [facility] for continuing physical rehabilitation and medical care. Apparently fell and got the stump dehiscence and infected. The patient was brought into the emergency department where he was evaluated, was found to have an infected wound, was admitted and started on broad-spectrum IV antibiotics. Cultures were also done which came back as MSSA positive. Antibiotic was tailored accordingly. The patient was sent to the OR where revision of the stump was done, debridement, and primary closure was done. Postoperatively Mr. Martinez continues to improve. He has been afebrile. He is eating okay. Vitals are stable. I looked at the stump this morning and it looks remarkably clean. The patient is therefore stable for discharge if it is okay with Surgery. He will be discharged on antibiotics and he will follow up with Dr. Kelly. All the discharge instructions discussed with him. He voiced understanding TIME SPENT FOR DISCHARGE: 37 minutes. cc: MD Jose David Coreas MD Dr. Walker
--- NOTE | 2018-06-16 14:23 | PROGRESS NOTE ---
DATE: 06/16/2018 Mr. Martinez's left [id number] amputation stump is intact. He may have some redness, but I do not feel that it is cellulitis or infection. He has no hematoma. There has been no significant drainage. Overall, I am pleased with his revision of his left oxcfu-mhy-fqfi amputation stump. We will re-dress it. I think it is okay to discharge him to rehab. He has to be very careful not to fall on the stump or hit it. This stump has to heal well. I feel that his IV antibiotics can be switched to p.o. at discharge. These antibiotics were just prophylactic anyway because he had an infected stump that I revised. His skin clips need to stay for several more weeks, and certainly he can follow up with me after discharge from rehab. Clinically, he is in good spirits and feels well. He is also eating well. cc: Esperanza Persaud MD
[2018-06-16 16:08] VITALS: BP 146/78
== END 2018-06-16 19:28 | DRG 475 ==
LOC: ED 03:50 → SUATTDRO 08:45 → 4N 08:45
PROVIDERS: ATTEND Internal Medicine
CPT/HCPCS: 36430; 71020; 71046; 73701; 80048; 80053; 80202; 81001; 82948; 83036; 85014; 85018; 85025; 85610; 85651; 85730; 86140; 86850; 86900; 86901; 86920; 87040; 87070; 87077; 87186; 88304; 94760; 94761; 94799; 96365; 96366; 96368; 97110; 97162; 97530; 99285; A9270; J0690; J1170; J1650; J1815; J2270; J2405; J2543; J3010; J3370; J7030; J7050; P9016; P9047; Q9967; XXXXX